=== PATIENT | female | born 1950 | race American Indian/Alaskan Native ===

== ENCOUNTER 2018-02-14 09:19 | Emergency (ER) | payer MEDICARE ==
[2018-02-14 09:34] VITALS: BP 199/100
[2018-02-14] MEDS ORDERED: MOTRIN PO ONE (10:07)
[2018-02-14] MEDS ORDERED: NORCO 7.5/325 PO ONE (10:07)
--- NOTE | 2018-02-14 10:38 | XRay Report ---
LEFT KNEE RADIOGRAPHS INDICATION: Left knee pain, status post fall. COMPARISON: None similar at this institution. FINDINGS: AP, lateral and oblique left knee radiographs demonstrate intact overall articulation. Moderate to severe medial compartment narrowing with slight sclerosis and possible 2 mm medial femoral condyle subarticular cyst. Mild medial and patellofemoral compartment degenerative spurring. Patellar enthesophytes also seen. Atherosclerotic vascular calcifications noted behind the knee. Osteopenia/osteoporosis. Imaged distal femur as also proximal tibia and possibly fibular periosteal thickening suggested. CONCLUSION: 1. No acute left knee radiographic abnormality with degenerative changes noted, most involving the medial compartment, as detailed above. 2. Other findings, including diffuse long bone periosteal reaction/thickening that may be correlated for hypertrophic osteoarthropathy, amongst others, in an appropriate clinical setting. Thank you for the opportunity to participate in this patient's care.
--- NOTE | 2018-02-14 10:46 | Emergency Department Report ---
ED Extremity Problem HPI - General Chief complaint: Fall Stated complaint: FELL ON KNEE INJURY/PAIN Time Seen by Provider: 02/14/18 10:06 Source: patient Mode of arrival: Wheelchair Limitations: No Limitations - History of Present Illness Initial comments: Patient is a 67-year-old [place] female with a past medical history end-stage renal disease who fell yesterday on an escalator. Patient fell directly onto the left knee and states the pain is 10 out of 10 and hurts worse when she bends the knee and when she tries to bear weight. Patient denies any other injury at this time. Patient states pain is throbbing aching pain. Severity scale (0 -10): 10 - Related Data Previous Rx's Medication Instructions Recorded Last Taken Type HYDROcodone/ACETAMINOPHEN 1 each PO Q6HR PRN #15 tablet 02/14/18 Unknown Rx [Hydrocodone-Acetamin 5-325 mg] Allergies Allergy/AdvReac Type Severity Reaction Status Date / Time No Known Allergies Allergy Verified 02/14/18 09:25 ED Review of Systems ROS: Stated complaint: FELL ON KNEE INJURY/PAIN Other details as noted in HPI Comment: All other systems reviewed and negative ED Past Medical Hx - Past Medical History Previous Medical History?: Yes Hx Hypertension: Yes Hx Renal Disease: Yes (Tues, Thurs, Sat) - Surgical History Past Surgical History?: Yes Additional Surgical History: VAs cath to right chest - Social History Smoking Status: Former Smoker Substance Use Type: None - Medications Home Medications: Home Medications Medication Instructions Recorded Confirmed Last Taken Type HYDROcodone/ACETAMINOPHEN 1 each PO Q6HR PRN #15 tablet 02/14/18 Unknown Rx [Hydrocodone-Acetamin 5-325 mg] ED Physical Exam - General Limitations: No Limitations General appearance: alert, in no apparent distress - Head Head exam: Present: atraumatic, normocephalic - Eye Eye exam: Present: normal appearance - ENT ENT exam: Present: mucous membranes moist - Neck Neck exam: Present: normal inspection - Respiratory Respiratory exam: Present: normal lung sounds bilaterally. Absent: respiratory distress - Cardiovascular Cardiovascular Exam: Present: regular rate, normal rhythm. Absent: systolic murmur, diastolic murmur, rubs, gallop - GI/Abdominal GI/Abdominal exam: Present: soft, normal bowel sounds - Extremities Exam Extremities exam: Present: normal inspection, tenderness (patient has full range of motion to the left knee. She does have tenderness over the patella and distal knee anteriorly. There is some soft tissue swelling present.), joint swelling - Back Exam Back exam: Present: normal inspection - Neurological Exam Neurological exam: Present: alert, oriented X3 - Psychiatric Psychiatric exam: Present: normal affect, normal mood - Skin Skin exam: Present: warm, dry, intact, normal color. Absent: rash ED Course Vital Signs 02/14/18 09:25 Temperature 98.4 F Pulse Rate 75 Respiratory 20 Rate Blood Pressure 199/100 O2 Sat by Pulse 100 Oximetry ED Medical Decision Making - Radiology Data Left knee x-ray shows degenerative changes but no acute fracture. There is a moderate amount of soft tissue swelling present Critical care attestation.: If time is entered above; I have spent that time in minutes in the direct care of this critically ill patient, excluding procedure time. ED Disposition Clinical Impression: Knee effusion, left Knee contusion Qualifiers: Encounter type: initial encounter Laterality: left Qualified Code(s): S80.02XA - Contusion of left knee, initial encounter Disposition: TO HOME OR SELFCARE Is pt being admited?: No Does the pt Need Aspirin: No Condition: Stable Instructions: Knee Effusion (ED), Osteoarthritis (ED), Knee Pain (ED), RICE Therapy (ED) Prescriptions: HYDROcodone/ACETAMINOPHEN [Hydrocodone-Acetamin 5-325 mg] 1 each PO Q6HR PRN # 15 tablet PRN Reason: Pain , Severe (7-10) Referrals: AUSTIN ARAUJO MD [Staff Physician] - 3-5 Days Time of Disposition: 10:46
== END 2018-02-14 11:30 | disposition home or self-care (01) ==
LOC: ED 09:19
DX: S80.02XA Contusion of left knee, initial encounter (principal); M25.462 Effusion, left knee; Z87.891 Personal history of nicotine dependence; I12.0 Hypertensive chronic kidney disease with stage 5 chronic kidney disease or end stage renal disease; N18.6 End stage renal disease; Z99.2 Dependence on renal dialysis; W18.39XA Other fall on same level, initial encounter; Y93.89 Activity, other specified; Y92.89 Other specified places as the place of occurrence of the external cause; Y99.8 Other external cause status

== ENCOUNTER 2020-01-20 20:51 | Emergency (ER) | payer MEDICARE ==
[2020-01-20 22:04] LABS: Basophils % (Auto) 0.3 % (0.0-1.8); Eosinophils % (Auto) 0.1 % (0.0-4.3); Hematocrit 32.6 % (30.3-42.9); Hemoglobin 10.9 gm/dl (10.1-14.3); Lymphocytes # (Auto) 0.6 K/mm3 (1.2-5.4); Lymphocytes % (Auto) 6.5 % (13.4-35.0); Mean Corpuscular HGB Conc 33 % (30-34); Mean Corpuscular Volume 96 fl (79-97); Monocytes # (Auto) 0.7 K/mm3 (0.0-0.8); Platelet Count 109 K/mm3 (140-440); Red Blood Count 3.41 M/mm3 (3.65-5.03); Red Cell Distribution Width 15.2 % (13.2-15.2)
[2020-01-20 22:27] LABS: Albumin 4.2 g/dL (3.9-5)
[2020-01-21 06:20] VITALS: BP 130/66
--- NOTE | 2020-01-21 06:24 | Emergency Department Report ---
HPI - General Chief Complaint: Abdominal Pain Time Seen by Provider: 01/21/20 06:10 - HPI HPI: This is a 69-year-old -Congol[place] female who presents to the emergency department with complaint of nausea, vomiting and diarrhea that was going on since about 4 PM yesterday afternoon. However the patient says "as soon as I got here it all stopped." She also has some upper abdominal soreness that she says is secondary to her vomiting. At one point patient says she was vomiting up "dark-colored slime." She has a past medical history of hypertension and end-stage renal disease on hemodialysis on Monday//Monday. Her formal waiter/waitress is Dr. Latoya Delaney. She has not taken anything for symptoms prior to presentation. No recent travel or sick contacts at home. ED Past Medical Hx - Past Medical History Hx Hypertension: Yes Hx Renal Disease: Yes (, , Mon) - Surgical History Additional Surgical History: VAs cath to right chest - Social History Smoking Status: Former Smoker Substance Use Type: None - Medications Home Medications: Home Medications Medication Instructions Recorded Confirmed Last Taken Type HYDROcodone/ACETAMINOPHEN 1 each PO Q6HR PRN #15 tablet 02/14/18 Unknown Rx [Hydrocodone-Acetamin 5-325 mg] Ondansetron [Zofran Odt] 4 mg PO Q8HR PRN #15 tab.rapdis 01/21/20 Unknown Rx ED Review of Systems ROS: Stated complaint: N/V, FEVER Other details as noted in HPI Comment: All other systems reviewed and negative Constitutional: denies: chills, fever Eyes: denies: eye pain, vision change ENT: denies: ear pain, throat pain Respiratory: denies: cough, shortness of breath Cardiovascular: denies: chest pain, palpitations Gastrointestinal: abdominal pain, nausea, vomiting, diarrhea Genitourinary: denies: dysuria, discharge Musculoskeletal: denies: back pain, arthralgia Skin: denies: rash, lesions Neurological: denies: headache, weakness Physical Exam - Physical Exam Vital Signs: Vital Signs 01/20/20 01/21/20 01/21/20 21:16 05:26 05:27 Temperature 99.0 F 98.0 F Pulse Rate 70 71 Respiratory 18 17 17 Rate Blood Pressure 159/78 Blood Pressure 146/69 [Right] O2 Sat by Pulse 98 99 Oximetry 01/21/20 01/21/20 05:50 06:18 Temperature Pulse Rate 64 Respiratory 17 17 Rate Blood Pressure Blood Pressure 130/66 [Right] O2 Sat by Pulse 98 Oximetry Physical Exam: GENERAL: The patient is well-developed well-nourished. HENT: Normocephalic. Atraumatic. Patient has moist mucous membranes. EYES: Extraocular motions are intact. NECK: Supple. Trachea is midline. CHEST/LUNGS: Clear to auscultation. There is no respiratory distress noted. HEART/CARDIOVASCULAR: Regular. There is no tachycardia. There is no murmur. ABDOMEN: Abdomen is soft. Mild epigastric tenderness palpation. No guarding. Patient has normal bowel sounds. There is no abdominal distention. SKIN: Skin is warm and dry. NEURO: The patient is awake, alert, and oriented. The patient is cooperative. Normal speech. MUSCULOSKELETAL: There is no tenderness or deformity. There is no limitation range of motion. ED Course Vital Signs 01/20/20 01/21/20 01/21/20 21:16 05:26 05:27 Temperature 99.0 F 98.0 F Pulse Rate 70 71 Respiratory 18 17 17 Rate Blood Pressure 159/78 Blood Pressure 146/69 [Right] O2 Sat by Pulse 98 99 Oximetry 01/21/20 01/21/20 05:50 06:18 Temperature Pulse Rate 64 Respiratory 17 17 Rate Blood Pressure Blood Pressure 130/66 [Right] O2 Sat by Pulse 98 Oximetry ED Medical Decision Making - Lab Data Result diagrams: 01/20/20 21:44 01/20/20 21:44 - Radiology Data Radiology results: report reviewed ULTRASOUND ABDOMEN, LIMITED (RIGHT UPPER QUADRANT) INDICATION: upper abd pain, elevated LFT/Lipase. COMPARISON: None available. FINDINGS: Pancreas: Visualized portion shows no significant abnormality. Liver: Mild increased echogenicity. Gallbladder: Gallstones. No wall thickening. Bile ducts: Normal. Common Bile Duct measures 4.5 mm. Free fluid: None. Additional Findings: Right kidney small measuring 8.4 cm. Increased echogenicity. 2 cysts. IMPRESSION: 1. Gallstones without biliary dilatation. 2. Fatty liver. 3. Small, echogenic right kidney containing small cysts. There appears to have been an addendum added stating that there were no obvious gallstones found but instead there is a prominent fold within the gallbladder. - Medical Decision Making This patient presented with a complaint of nausea, vomiting and diarrhea that started yesterday but spontaneously stopped upon presentation to the emergency department. On examination she has some mild epigastric tenderness to palpation but otherwise the abdomen is soft, nondistended and nontoxic in appearance. Patient's labs shows some elevated LFTs and elevation of the lipase. For these reasons the patient had an ultrasound done of the upper abdomen that resulted as cholelithiasis without cholecystitis. There was later an addendum saying that gallstones were not obvious but instead it may have been a "prominent fold" in the gallbladder. This does not change the patient's management as she was already referred to gastroenterology secondary to the transaminitis and her mild abdominal pain. The patient's labs also showed renal insufficiency consistent with her end-stage renal disease. She was due for dialysis today but does not appear to need emergent dialysis. She has been instructed to contact her formal waiter/waitress to continue with her dialysis schedule. She will return to the emergency department with any worsening of her symptoms or with any acute distress. Critical Care Time: No Critical care attestation.: If time is entered above; I have spent that time in minutes in the direct care of this critically ill patient, excluding procedure time. ED Disposition Clinical Impression: ESRD on hemodialysis Nausea & vomiting Qualifiers: Vomiting type: unspecified Vomiting Intractability: unspecified Qualified Code(s): R11.2 - Nausea with vomiting, unspecified Cholelithiasis Qualifiers: Cholelithiasis location: gallbladder Cholecystitis presence: without cholecystitis Biliary obstruction: without biliary obstruction Qualified Code(s): K80.20 - Calculus of gallbladder without cholecystitis without obstruction Disposition: - TO HOME OR SELFCARE Is pt being admited?: No Condition: Stable Instructions: Biliary Colic (ED), Cholelithiasis (ED), Acute Nausea and Vomiting (ED), Abdominal Pain (ED), End-Stage Kidney Disease (ED) Additional Instructions: Please continue with your dialysis regiment. Please follow-up with your primary care physician and formal waiter/waitress. I am giving you a referral for a local steward/stewardess deck, Dr. Dunlap, part of [facility], in order to follow-up regarding your elevated liver and pancreatic enzymes and your gallstones. Return to the emergency department with any worsening of your symptoms or with any acute distress. Prescriptions: Ondansetron [Zofran Odt] 4 mg PO Q8HR PRN #15 tab.rapdis PRN Reason: Nausea Referrals: PCP, Your [Other] - 2-3 Days Tank Assembler, Your [Other] - 2-3 Days CAROL DUNLAP MD [Staff Physician] - 3-5 Days Time of Disposition: 07:45
--- NOTE | 2020-01-21 07:06 | XRay Report ---
ABDOMEN 1 VIEW(S) INDICATION / CLINICAL INFORMATION: Abd pain. COMPARISON: None available. FINDINGS: TUBES / LINES: None. BOWEL GAS PATTERN: No significant abnormality. ADDITIONAL FINDINGS: Cardiomegaly. Signer Name: Hero Piper MD Signed: 01/21/2020 7:01 AM Workstation Name: [id number]
--- NOTE | 2020-01-21 07:29 | Ultrasound Report ---
ULTRASOUND ABDOMEN, LIMITED (RIGHT UPPER QUADRANT) INDICATION: upper abd pain, elevated LFT/Lipase. COMPARISON: None available. FINDINGS: Pancreas: Visualized portion shows no significant abnormality. Liver: Mild increased echogenicity. Gallbladder: Gallstones. No wall thickening. Bile ducts: Normal. Common Bile Duct measures 4.5 mm. Free fluid: None. Additional Findings: Right kidney small measuring 8.4 cm. Increased echogenicity. 2 cysts. IMPRESSION: 1. Gallstones without biliary dilatation. 2. Fatty liver. 3. Small, echogenic right kidney containing small cysts. Signer Name: Hero Piper MD Signed: 01/21/2020 7:25 AM Workstation Name: [id number]
== END 2020-01-21 08:28 | disposition home or self-care (01) ==
LOC: ED 20:51
DX: K80.20 Calculus of gallbladder without cholecystitis without obstruction (principal); R11.2 Nausea with vomiting, unspecified; I12.0 Hypertensive chronic kidney disease with stage 5 chronic kidney disease or end stage renal disease; N18.6 End stage renal disease; Z99.2 Dependence on renal dialysis; Z98.890 Other specified postprocedural states; Z87.891 Personal history of nicotine dependence; Z79.899 Other long term (current) drug therapy
CPT/HCPCS: 36415; 74019; 76705; 80053; 83690; 85025

== ENCOUNTER 2020-10-05 08:48 | Emergency (ER) | payer MEDICARE ==
[2020-10-05 09:08] VITALS: BP 165/76
[2020-10-05] MEDS ORDERED: HYDROcodone/ACETAMINOPHEN 10-325MG TAB PO ONE (10:29)
--- NOTE | 2020-10-05 10:30 | Emergency Department Report ---
ED Back Pain/Injury HPI - General Chief Complaint: Back Pain/Injury Stated Complaint: BACK PAIN Time Seen by Provider: 10/05/20 10:28 Source: patient Limitations: Other - History of Present Illness Initial Comments: 70-year-old female with a past medical history of end-stage renal disease currently on hemodialysis Tuesdays, and Saturdays, diabetes, hyperlipidemia, hypertension and tobacco use presents to the ER today with complaints of right low back pain. Patient states that the pain started about 4 days ago. She denies any particular injury or strenuous activity. She states that she noticed the pain when she was getting ready for dialysis. She states that has been a constant pain that radiates into her right upper abdomen. She states that the pain seems to be worse with certain movements and when she stands and tries to walk. She denies any radiation of the pain down into the leg. She states that she does not produce any urine secondary to end-stage renal disease. She denies any bowel incontinence, saddle anesthesia or lower extremity numbness, tingling or weakness. She denies any nausea, vomiting or diarrhea. She denies any abdominal pain, chest pain or shortness of breath. She denies any fever or chills. She denies any known history of aortic disease. She denies any history of chronic back pain. MD Complaint: back pain -: Gradual, days(s) (4) - Related Data Previous Rx's Medication Instructions Recorded Last Taken Type Ondansetron [Zofran Odt] 4 mg PO Q8HR PRN #15 tab.rapdis 01/21/20 Unknown Rx Ciprofloxacin HCl 500 mg PO Q12H #14 tablet 10/05/20 Unknown Rx HYDROcodone/APAP 7.5-325 [Holman 1 each PO Q6HR PRN #12 tablet 10/05/20 Unknown Rx 7.5/325] Metaxalone [Skelaxin] 800 mg PO TID #30 tablet 10/05/20 Unknown Rx metroNIDAZOLE [Flagyl] 500 mg PO Q12HR #14 tab 10/05/20 Unknown Rx Allergies Allergy/AdvReac Type Severity Reaction Status Date / Time No Known Allergies Allergy Verified 02/14/18 09:25 ED Review of Systems ROS: Stated complaint: BACK PAIN Other details as noted in HPI Comment: All other systems reviewed and negative Constitutional: denies: chills, fever Eyes: denies: eye pain, eye discharge, vision change ENT: denies: ear pain, throat pain, dental pain, hearing loss, epistaxis, congestion Respiratory: denies: cough, orthopnea, shortness of breath, SOB with exertion, SOB at rest, stridor, wheezing Cardiovascular: denies: chest pain, palpitations, dyspnea on exertion, orthopnea, edema, syncope, paroxysmal nocturnal dyspnea Endocrine: no symptoms reported Gastrointestinal: denies: abdominal pain, nausea, diarrhea, constipation, hematemesis, melena, hematochezia Genitourinary: denies: urgency, dysuria, frequency, hematuria, discharge, abnormal menses, dyspareunia Musculoskeletal: back pain. denies: joint swelling, arthralgia, myalgia Skin: denies: rash, lesions, change in color, change in hair/nails, pruritus Neurological: denies: headache, weakness, numbness, paresthesias, confusion, abnormal gait, vertigo Psychiatric: denies: anxiety, depression, auditory hallucinations, visual hallucinations, homicidal thoughts, suicidal thoughts Hematological/Lymphatic: denies: easy bleeding, easy bruising, swollen glands ED Past Medical Hx - Past Medical History Previous Medical History?: Yes Hx Hypertension: Yes Hx Renal Disease: Yes (, Th, Sat) - Surgical History Past Surgical History?: Yes Additional Surgical History: VAs cath to right chest - Social History Smoking Status: Former Smoker Substance Use Type: None - Medications Home Medications: Home Medications Medication Instructions Recorded Confirmed Last Taken Type Ondansetron [Zofran Odt] 4 mg PO Q8HR PRN #15 tab.rapdis 01/21/20 Unknown Rx Ciprofloxacin HCl 500 mg PO Q12H #14 tablet 10/05/20 Unknown Rx HYDROcodone/APAP 7.5-325 [Holman 1 each PO Q6HR PRN #12 tablet 10/05/20 Unknown Rx 7.5/325] Metaxalone [Skelaxin] 800 mg PO TID #30 tablet 10/05/20 Unknown Rx metroNIDAZOLE [Flagyl] 500 mg PO Q12HR #14 tab 10/05/20 Unknown Rx ED Physical Exam - General Limitations: Other General appearance: alert, in distress (Patient appears uncomfortable secondary to the pain in her back.) - Head Head exam: Present: atraumatic, normocephalic, normal inspection - Eye Eye exam: Present: normal appearance, PERRL, EOMI Pupils: Present: normal accommodation - ENT ENT exam: Present: normal exam, mucous membranes moist, TM's normal bilaterally - Neck Neck exam: Present: normal inspection - Respiratory Respiratory exam: Present: normal lung sounds bilaterally. Absent: respiratory distress, wheezes, rales, rhonchi - Cardiovascular Cardiovascular Exam: Present: regular rate, normal rhythm, normal heart sounds - GI/Abdominal GI/Abdominal exam: Present: soft, tenderness (Mild tenderness right upper quadrant without guarding or rebound.). Absent: distended, guarding, rebound, hyperactive bowel sounds, hypoactive bowel sounds, organomegaly - Back Exam Back exam: Present: normal inspection, paraspinal tenderness (right lower lumbar area), other (decrease in flex and ext of spine due to pain ) - Neurological Exam Neurological exam: Present: alert, oriented X3, CN II-XII intact, reflexes normal, other (pt in wheelchair, she is able to stand up from wheelchair, but when she tries to ambulate it causes pain in lower back, so gait not fully tested due to pain). Absent: motor sensory deficit (Normal sensation and strength along bilateral lower extremity and equal.) - Expanded Neurological Exam Expanded Sensory exam: Lower Extremity Light Touch: Normal, Lower Extremity Temperature: Normal Motor strength exam: RUE: 5, LUE: 5, RLE: 5, LLE: 5 Best Eye Response ([place]): (4) open spontaneously Best Motor Response ([place]): (6) obeys commands Best Verbal Response ([place]): (5) oriented Sonny Total: 15 - Psychiatric Psychiatric exam: Present: normal affect, normal mood - Skin Skin exam: Present: intact ED Course Vital Signs 10/05/20 09:06 Temperature 98.7 F Pulse Rate 69 Respiratory 18 Rate Blood Pressure 165/76 [Right] O2 Sat by Pulse 99 Oximetry ED Medical Decision Making - Lab Data Result diagrams: 10/05/20 10:44 10/05/20 10:44 - Radiology Data Radiology results: report reviewed Patient: RODNEY LANDAVERDE MR#: [id number] : 1950 Acct:[id number] Age/Sex: 70 / F ADM Date: 10/05/20 Loc: ED Attending Dr: Ordering Physician: RAJINDER MOLINA Date of Service: 10/05/20 Procedure(s): CT abdomen pelvis wo con Accession Number(s): [id number] cc: RAJINDER MOLINA CT ABDOMEN AND PELVIS WITHOUT CONTRAST HISTORY: Right back pain/right upper abd pain. COMPARISON: None. TECHNIQUE: CT images of the abdomen and pelvis were obtained without administration of intravenous contrast. All CT scans at this location are performed using CT dose reduction for ALARA by means of automated exposure control. FINDINGS: Lungs/bones: Mild left lower lung atelectasis. Abdomen/pelvis: Within limits of a noncontrast exam through glands, pancreas, gallbladder and spleen appear normal. The liver appears enlarged. Bilateral kidneys appear atrophic small in size. There is a left renal hypodensity density cyst. No ureteral stones or renal stones are seen. There is mild edema/inflammation just deep to the skin surface in left lower abdomen, nonspecific. No drainable collection is seen. There is thickening of the cecum and ascending colon suggested. The appendix is not definitely seen. Degenerative changes seen throughout spine. IMPRESSION: 1. There is thickening of the cecum and ascending colon which could represent colitis, inflammatory, infectious, nonspecific. The appendix is not well seen and clinical correlation is recommended. No free fluid is seen. 2. Hepatomegaly with hepatic steatosis. 3. Left renal cyst. Mild inflammation surrounding the kidneys without renal atrophy however no renal or ureteral stones. 4. Mild inflammation in the subcutaneous fat just deep to skin surface in left lower abdomen, 9 6. Clinical correlation. 5. Left lower lung atelectasis. Signer Name: Sameer Gonzalez MD Signed: 10/05/2020 11:21 AM Workstation Name: [id number] Transcribed By: DOMINGO Dictated By: VANDANA GONZALEZ MD Electronically Authenticated By: VANDANA GONZALEZ MD Signed Date/Time: 10/05/20 1121 DD/ 1117 TD/TT: - Medical Decision Making 1229: CT/Labs reviewed - Nothing acute on labs, UA not done because patient does not make urine; CT abdomen and pelvis with IV contrast shows that there is thickening of the cecum and ascending colon which could represent colitis, inflammatory, infectious, nonspecific. The appendix is not well seen and clinical correlation is recommended. No free fluid is seen. Hepatomegaly with hepatic steatosis. Left renal cyst. Mild inflammation surrounding the kidneys without renal atrophy however no renal or ureteral stones. Mild inflammation in the subcutaneous fat just deep to skin surface in left lower abdomen, 9 6. Clinical correlation. Left lower lung atelectasis. Patient reports improvement of her pain after meds. She is not toxic or ill appearing and currently in no distress. She is neurologically intact. Her VS are stable. Patient will be treated with Cipro and Flagyl (per discussion with Dr Love Robins) for colitis as well as pain meds and muscle relaxers as her back pain could also be related to DJD in spine seen on CT. discussed results with patient, discussed suspected diagnosis with patient; Recommend that she follows up with her primary care doctor in the next couple days as well as referral to a alignment specialist for possible outpatient MRI of her spine. Patient expresses understanding of instructions and agree with plan. Patient stable at time of discharge. Critical care attestation.: If time is entered above; I have spent that time in minutes in the direct care of this critically ill patient, excluding procedure time. ED Disposition Clinical Impression: Lower back pain, Colitis, Degenerative joint disease (DJD) of lumbar spine Disposition: DC-01 TO HOME OR SELFCARE Is pt being admited?: No Does the pt Need Aspirin: No Condition: Stable Instructions: Acute Back Pain, Adult, Degenerative Disk Disease, Colitis Additional Instructions: Take the Cipro and the Flagyl as prescribed. The hydrocodone and the Skelaxin as prescribed for the back pain. Follow-up with your primary care doctor and the urologist this week. Return to the ER if your symptoms worsens or changes in any way. Prescriptions: Ciprofloxacin HCl 500 mg PO Q12H #14 tablet metroNIDAZOLE [Flagyl] 500 mg PO Q12HR #14 tab HYDROcodone/APAP 7.5-325 [Holman 7.5/325] 1 each PO Q6HR PRN #12 tablet PRN Reason: Pain Metaxalone [Skelaxin] 800 mg PO TID #30 tablet Referrals: PRIMARY CARE, [Primary Care Provider] - 3-5 Days Time of Disposition: 12:32
[2020-10-05 11:06] LABS: Basophils % (Auto) 0.3 % (0.0-1.8); Eosinophils # (Auto) 0.1 K/mm3 (0.0-0.4); Eosinophils % (Auto) 0.7 % (0.0-4.3); Hematocrit 34.9 % (30.3-42.9); Hemoglobin 11.4 gm/dl (10.1-14.3); Lymphocytes # (Auto) 0.9 K/mm3 (1.2-5.4); Lymphocytes % (Auto) 13.1 % (13.4-35.0); Mean Corpuscular HGB Conc 33 % (30-34); Mean Corpuscular Volume 96 fl (79-97); Monocytes # (Auto) 0.8 K/mm3 (0.0-0.8); Monocytes % (Auto) 11.2 % (0.0-7.3); Platelet Count 135 K/mm3 (140-440); Red Blood Count 3.64 M/mm3 (3.65-5.03); Red Cell Distribution Width 14.4 % (13.2-15.2)
[2020-10-05 11:22] LABS: Albumin 3.4 g/dL (3.9-5); Calcium 8.1 mg/dL (8.4-10.2)
--- NOTE | 2020-10-05 11:25 | Cat Scan Report ---
CT ABDOMEN AND PELVIS WITHOUT CONTRAST HISTORY: Right back pain/right upper abd pain. COMPARISON: None. TECHNIQUE: CT images of the abdomen and pelvis were obtained without administration of intravenous co ntrast. All CT scans at this location are performed using CT dose reduction for ALARA by means of au tomated exposure control. FINDINGS: Lungs/bones: Mild left lower lung atelectasis. Abdomen/pelvis: Within limits of a noncontrast exam through glands, pancreas, gallbladder and spleen appear normal. The liver appears enlarged. Bilateral kidneys appear atrophic small in size. There is a left renal hypodensity density cyst. No ureteral stones or renal stones are seen. There is mild edema/inflammation just deep to the skin surface in left lower abdomen, nonspecific. No drainable collection is seen. There is thickening of the cecum and ascending colon suggested. The ap pendix is not definitely seen. Degenerative changes seen throughout spine. IMPRESSION: 1. There is thickening of the cecum and ascending colon which could represent colitis, inflammatory, infectious, nonspecific. The appendix is not well seen and clinical correlation is recommended. No fr ee fluid is seen. 2. Hepatomegaly with hepatic steatosis. 3. Left renal cyst. Mild inflammation surrounding the kidneys without renal atrophy however no renal or ureteral stones. 4. Mild inflammation in the subcutaneous fat just deep to skin surface in left lower abdomen, 9 6. Cl inical correlation. 5. Left lower lung atelectasis. Signer Name: Sameer Gonzalez MD Signed: 10/05/2020 11:21 AM Workstation Name: [id number]
== END 2020-10-05 12:40 | disposition home or self-care (01) ==
LOC: ED 08:48
DX: M47.816 Spondylosis without myelopathy or radiculopathy, lumbar region (principal); K52.9 Noninfective gastroenteritis and colitis, unspecified; E78.5 Hyperlipidemia, unspecified; I12.0 Hypertensive chronic kidney disease with stage 5 chronic kidney disease or end stage renal disease; N18.6 End stage renal disease; E11.22 Type 2 diabetes mellitus with diabetic chronic kidney disease; Z87.891 Personal history of nicotine dependence; Z79.899 Other long term (current) drug therapy; Z98.890 Other specified postprocedural states
CPT/HCPCS: 36415; 74176; 80053; 85025

== ENCOUNTER 2020-10-29 04:59 | Emergency (ER) | payer MEDICARE ==
[2020-10-29] MEDS ORDERED: traMADol 50 MG TAB PO ONE (06:34)
--- NOTE | 2020-10-29 06:37 | Emergency Department Report ---
ED Back Pain/Injury HPI - General Chief Complaint: Back Pain/Injury Stated Complaint: SEVERE BACK PAIN Time Seen by Provider: 10/29/20 06:17 Source: patient Limitations: No Limitations - History of Present Illness Initial Comments: 70-year-old female, history of ESRD, presents to ED with back pain. Patient states pain began approximately 1 month ago. She was seen in the ER at that time given prescription for pain medications. Patient also reports she had a CT scan done. Patient states her pain improved after taking the medications. States the pain came back yesterday. She reports she has been taking Tylenol, which is not relieving the pain. Patient states pain is located across the lower back on both sides. She denies any pain radiating into the legs. She denies any numbness or tingling, weakness in the legs. Patient is anuric secondary to her ESRD. She denies any bowel retention or incontinence. Patient denies fever. She denies any injury, fall, or heavy lifting. MD Complaint: back pain -: month(s) (1) Similar Symptoms Previously: Yes Radiation: none Severity: severe Quality: aching Consistency: intermittent Improves With: immobilization Worsens With: movement Context: unknown Associated Symptoms: denies: weakness, numbness, incontinence, fever/chills, constipation, abdominal pain, nausea/vomiting Treatments Prior to Arrival: acetaminophen - Related Data Previous Rx's Medication Instructions Recorded Last Taken Type Ondansetron [Zofran Odt] 4 mg PO Q8HR PRN #15 tab.rapdis 01/21/20 Unknown Rx Ciprofloxacin HCl 500 mg PO Q12H #14 tablet 10/05/20 Unknown Rx HYDROcodone/APAP 7.5-325 [[place] 1 each PO Q6HR PRN #12 tablet 10/05/20 Unknown Rx 7.5/325] Metaxalone [Skelaxin] 800 mg PO TID #30 tablet 10/05/20 Unknown Rx metroNIDAZOLE [Flagyl] 500 mg PO Q12HR #14 tab 10/05/20 Unknown Rx methOCARBAMOL [Robaxin TAB] 500 mg PO Q8HR PRN #20 tablet 10/29/20 Unknown Rx traMADoL [Ultram] 50 mg PO Q6HR PRN #7 tablet 10/29/20 Unknown Rx Allergies Allergy/AdvReac Type Severity Reaction Status Date / Time No Known Allergies Allergy Verified 10/29/20 05:18 ED Review of Systems ROS: Stated complaint: SEVERE BACK PAIN Other details as noted in HPI Comment: All other systems reviewed and negative Constitutional: denies: fever Gastrointestinal: denies: nausea Musculoskeletal: back pain Neurological: denies: weakness, numbness ED Past Medical Hx - Past Medical History Previous Medical History?: Yes Hx Hypertension: Yes Hx Renal Disease: Yes (Tues, Thurs, Sat) - Surgical History Past Surgical History?: No Additional Surgical History: VAs cath to right chest - Social History Smoking Status: Unknown if ever smoked Substance Use Type: None - Medications Home Medications: Home Medications Medication Instructions Recorded Confirmed Last Taken Type Ondansetron [Zofran Odt] 4 mg PO Q8HR PRN #15 tab.rapdis 01/21/20 Unknown Rx Ciprofloxacin HCl 500 mg PO Q12H #14 tablet 10/05/20 Unknown Rx HYDROcodone/APAP 7.5-325 [[place] 1 each PO Q6HR PRN #12 tablet 10/05/20 Unknown Rx 7.5/325] Metaxalone [Skelaxin] 800 mg PO TID #30 tablet 10/05/20 Unknown Rx metroNIDAZOLE [Flagyl] 500 mg PO Q12HR #14 tab 10/05/20 Unknown Rx methOCARBAMOL [Robaxin TAB] 500 mg PO Q8HR PRN #20 tablet 10/29/20 Unknown Rx traMADoL [Ultram] 50 mg PO Q6HR PRN #7 tablet 10/29/20 Unknown Rx ED Physical Exam - General Limitations: No Limitations General appearance: alert, in no apparent distress - Head Head exam: Present: atraumatic, normocephalic - Eye Eye exam: Present: normal appearance, EOMI - ENT ENT exam: Present: mucous membranes moist - Neck Neck exam: Present: normal inspection - Respiratory Respiratory exam: Present: normal lung sounds bilaterally. Absent: respiratory distress - Cardiovascular Cardiovascular Exam: Present: regular rate, normal rhythm - GI/Abdominal GI/Abdominal exam: Present: soft. Absent: distended, tenderness - Extremities Exam Extremities exam: Present: normal inspection - Back Exam Back exam: Present: paraspinal tenderness (in the L5, S1 area) - Neurological Exam Neurological exam: Present: alert, oriented X3. Absent: motor sensory deficit - Psychiatric Psychiatric exam: Present: normal affect, normal mood - Skin Skin exam: Present: warm, dry, intact, normal color ED Course Vital Signs 10/29/20 10/29/20 10/29/20 05:42 05:50 06:01 Temperature 98.9 F Pulse Rate 82 Respiratory 16 Rate Blood Pressure 156/79 Blood Pressure 144/66 [Right] O2 Sat by Pulse 100 98 99 Oximetry 10/29/20 10/29/20 06:15 08:21 Temperature Pulse Rate 62 Respiratory Rate Blood Pressure 155/77 Blood Pressure 164/84 [Right] O2 Sat by Pulse 98 99 Oximetry - Reevaluation(s) Reevaluation #1: 10/29/20 08:21 Pt ambulated by RN. No difficulties. ED Medical Decision Making - Medical Decision Making 70-year-old female presents to ED with acute on chronic back pain. Patient reports onset [address] scan at that time showed diffuse degenerative changes throughout the spine. Patient has not followed up since her last ER 1 month ago visit. Patient reports the same pain in same area today. She is afebrile. No neuro deficits on exam. No report of urinary or bowel incontinence or retention. Patient given Ultram and Robaxin here in the ED. She is currently feeling much better. Able to ambulate. Will discharge at this time. Outpatient follow-up advised with chief specialist leed, return precautions given. - Differential Diagnosis Degenerative disc disease Critical care attestation.: If time is entered above; I have spent that time in minutes in the direct care of this critically ill patient, excluding procedure time. ED Disposition Clinical Impression: Acute exacerbation of chronic low back pain Disposition: - TO HOME OR SELFCARE Is pt being admited?: No Condition: Stable Instructions: Chronic Back Pain, [id number] Prescriptions: methOCARBAMOL [Robaxin TAB] 500 mg PO Q8HR PRN #20 tablet PRN Reason: Muscle Spasm traMADoL [Ultram] 50 mg PO Q6HR PRN #7 tablet PRN Reason: Pain Referrals: PRIMARY CARE, [Primary Care Provider] - 3-5 Days FRANDY RITTER II, MD [Staff Physician] - 3-5 Days Time of Disposition: :22
[2020-10-29 08:22] VITALS: BP 164/84
== END 2020-10-29 08:45 | disposition home or self-care (01) ==
LOC: ED 04:59
DX: M54.5 Low back pain (principal); I10 Essential (primary) hypertension; Z79.899 Other long term (current) drug therapy; Z98.890 Other specified postprocedural states
CPT/HCPCS: 99282

== ENCOUNTER 2021-10-25 13:01 | Observation (INO) | payer OTHER ==
[2021-10-25 14:45] LABS: Basophils % (Auto) 0.7 % (0.0-1.8); Eosinophils # (Auto) 0.3 K/mm3 (0.0-0.4); Eosinophils % (Auto) 4.7 % (0.0-4.3); Hemoglobin 10.5 gm/dl (10.1-14.3); Lymphocytes # (Auto) 1.3 K/mm3 (1.2-5.4); Lymphocytes % (Auto) 18.3 % (13.4-35.0); Mean Corpuscular HGB Conc 31 % (30-34); Mean Corpuscular Volume 92 fl (79-97); Monocytes # (Auto) 0.7 K/mm3 (0.0-0.8); Monocytes % (Auto) 9.4 % (0.0-7.3); Platelet Count 147 K/mm3 (140-440); Red Blood Count 3.71 M/mm3 (3.65-5.03); Red Cell Distribution Width 17.2 % (13.2-15.2)
[2021-10-25 15:07] LABS: Alanine Aminotransferase 14 units/L (7-56); Albumin 3.7 g/dL (3.9-5); Blood Urea Nitrogen 66 mg/dL (7-17); Calcium 8.2 mg/dL (8.4-10.2); Hemolysis Index 0
[2021-10-25 15:10] LABS: BUN/Creatinine Ratio 5
--- NOTE | 2021-10-26 07:16 | Emergency Department Report ---
ED General Adult HPI - General Chief complaint: Medical Clearance Stated complaint: "I'm here for dialysis" PUI?: No Time Seen by Provider: 10/26/21 06:29 Source: patient Mode of arrival: Ambulatory Limitations: No Limitations - History of Present Illness Initial comments: 71-year-old female with history of end-stage renal disease on dialysis Monday, hypertension, congestive heart failure, DMII, HTN, sent from [facility] for dialysis. Patient reports that she was recently entered into this facility for rehabilitation secondary to her fracture in her right lower extremity. The patient states that since being there "they told me they would put me on dialysis and set me up but it never happened." She last underwent hemodialysis exactly 1 week ago, on Tuesday, October 19, 2021. Patient denies any chest pain shortness of breath difficulty breathing palpitations lightheadedness or dizziness. She complains of "my mild tightness in my abdomen." Pain 0 out of 10. Remainder review of systems negative. - Related Data Previous Rx's Medication Instructions Recorded Last Taken Type Ondansetron [Zofran ODT TAB] 4 mg PO Q8HR PRN #15 tab.rapdis 01/21/20 09/14/21 Rx Ciprofloxacin HCl 500 mg PO Q12H #14 tablet 10/05/20 09/14/21 Rx metroNIDAZOLE [Flagyl TAB] 500 mg PO Q12HR #14 tab 10/05/20 09/14/21 Rx methOCARBAMOL [Robaxin TAB] 500 mg PO Q8HR PRN #20 tablet 10/29/20 09/14/21 Rx traMADoL [Ultram 50 MG tab] 50 mg PO Q6HR PRN #7 tablet 10/29/20 09/13/21 Rx Aspirin EC [Halfprin EC] 81 mg PO QDAY #30 tablet 09/17/21 Unknown Rx HYDROcodone/APAP 7.5-325 [[place] 1 each PO Q6HR PRN #12 tablet 09/17/21 Unknown Rx 7.5-325 mg TAB] Metaxalone [Skelaxin] 800 mg PO TID #30 tablet 09/17/21 Unknown Rx NIFEdipine XL [Procardia Xl] 60 mg PO QDAY #30 tablet 09/17/21 Unknown Rx Valsartan [Diovan] 160 mg PO BID #60 tablet 09/17/21 Unknown Rx carvediloL [Coreg] 6.25 mg PO BID #60 tablet 09/17/21 Unknown Rx Allergies Allergy/AdvReac Type Severity Reaction Status Date / Time No Known Allergies Allergy Verified 09/14/21 15:42 ED Review of Systems ROS: Stated complaint: DIZZY Other details as noted in HPI Comment: All other systems reviewed and negative Constitutional: denies: chills, diaphoresis, fever, malaise, weakness Eyes: denies: eye pain, eye discharge ENT: denies: ear pain, throat pain, dental pain, hearing loss, epistaxis Respiratory: no symptoms reported Cardiovascular: denies: chest pain, palpitations, dyspnea on exertion, orthopnea, edema, syncope, paroxysmal nocturnal dyspnea Endocrine: denies: see HPI, excessive sweating, flushing, intolerance to cold, intolerance to heat, increased hunger, increased thirst, increased urine, unexplained weight gain, unexplained weight loss Genitourinary: denies: urgency, dysuria, frequency, hematuria, discharge, abnormal menses, dyspareunia Musculoskeletal: denies: back pain, joint swelling, arthralgia, myalgia Skin: denies: rash, lesions, change in color, change in hair/nails, pruritus Neurological: denies: headache, weakness, numbness, paresthesias, confusion, abnormal gait, vertigo, other Psychiatric: denies: anxiety, depression, auditory hallucinations, visual hallucinations, homicidal thoughts, suicidal thoughts Hematological/Lymphatic: denies: easy bleeding, easy bruising, swollen glands ED Past Medical Hx - Past Medical History Hx Hypertension: Yes Hx Diabetes: Yes Hx Renal Disease: Yes (Tues, Th, Sat) Hx COPD: Yes - Surgical History Additional Surgical History: VAs cath to right chest, right leg sx for fx - Social History Smoking Status: Never Smoker - Medications Home Medications: Home Medications Medication Instructions Recorded Confirmed Last Taken Type Ondansetron [Zofran ODT TAB] 4 mg PO Q8HR PRN #15 tab.rapdis 01/21/20 09/15/21 09/14/21 Rx Ciprofloxacin HCl 500 mg PO Q12H #14 tablet 10/05/20 09/15/21 09/14/21 Rx metroNIDAZOLE [Flagyl TAB] 500 mg PO Q12HR #14 tab 10/05/20 09/15/21 09/14/21 Rx methOCARBAMOL [Robaxin TAB] 500 mg PO Q8HR PRN #20 tablet 10/29/20 09/15/21 09/14/21 Rx traMADoL [Ultram 50 MG tab] 50 mg PO Q6HR PRN #7 tablet 10/29/20 09/15/21 09/13/21 Rx Aspirin EC [Halfprin EC] 81 mg PO QDAY #30 tablet 09/17/21 Unknown Rx HYDROcodone/APAP 7.5-325 [[place] 1 each PO Q6HR PRN #12 tablet 09/17/21 Unknown Rx 7.5-325 mg TAB] Metaxalone [Skelaxin] 800 mg PO TID #30 tablet 09/17/21 Unknown Rx NIFEdipine XL [Procardia Xl] 60 mg PO QDAY #30 tablet 09/17/21 Unknown Rx Valsartan [Diovan] 160 mg PO BID #60 tablet 09/17/21 Unknown Rx carvediloL [Coreg] 6.25 mg PO BID #60 tablet 09/17/21 Unknown Rx ED Physical Exam - General Limitations: No Limitations General appearance: alert (pt asleep, easily arousable, well appearing; no drooling no stridor no respiratory distress, breathing unlabored,), in no apparent distress - Head Head exam: Present: atraumatic, normocephalic, normal inspection - Eye Eye exam: Present: normal appearance, PERRL, EOMI Pupils: Present: normal accommodation - ENT ENT exam: Present: normal exam, normal orophraynx, mucous membranes moist, normal external ear exam - Neck Neck exam: Present: normal inspection, full ROM. Absent: tenderness, meningismus, lymphadenopathy, thyromegaly - Respiratory Respiratory exam: Present: normal lung sounds bilaterally. Absent: respiratory distress, wheezes, rales, rhonchi, stridor, chest wall tenderness, accessory muscle use, decreased breath sounds, prolonged expiratory - Cardiovascular Cardiovascular Exam: Present: regular rate, normal rhythm, normal heart sounds. Absent: bradycardia, tachycardia, irregular rhythm, systolic murmur, diastolic murmur, rubs, gallop, clicks, JVD, S3, S4, other - GI/Abdominal GI/Abdominal exam: Present: soft, normal bowel sounds. Absent: distended, tenderness, guarding, rebound, rigid, diminished bowel sounds, hyperactive bowel sounds, hypoactive bowel sounds, organomegaly, mass, bruit, pulsatile mass, hernia - Extremities Exam Extremities exam: Present: normal inspection, full ROM, normal capillary refill. Absent: tenderness, pedal edema, calf tenderness, other - Back Exam Back exam: Present: normal inspection, full ROM. Absent: tenderness, CVA tenderness (R), CVA tenderness (L), muscle spasm, paraspinal tenderness, vert ebral tenderness, rash noted - Neurological Exam Neurological exam: Present: alert, oriented X3, CN II-XII intact, normal gait, reflexes normal. Absent: altered, abnormal gait, motor sensory deficit - Psychiatric Psychiatric exam: Present: normal affect, normal mood. Absent: depressed, agitated, anxious, flat affect, manic, homicidal ideation, suicidal ideation - Skin Skin exam: Present: warm, dry, intact, normal color. Absent: rash, cyanosis, diaphoretic, erythema, urticaria, vesicles, petechiae, pallor, abrasion, ecchymosis ED Course Vital Signs 10/25/21 10/26/21 10/26/21 13:28 06:30 07:00 Temperature 98.6 F Pulse Rate 72 72 67 Respiratory 20 21 20 Rate Blood Pressure 151/85 173/75 155/78 Blood Pressure [Right] O2 Sat by Pulse 99 93 98 Oximetry O2 Sat by Pulse Oximetry [ Posterior Bilateral] 10/26/21 10/26/21 10/26/21 07:30 08:17 09:30 Temperature Pulse Rate 75 73 Respiratory 18 18 Rate Blood Pressure 163/71 186/101 Blood Pressure [Right] O2 Sat by Pulse 97 96 Oximetry O2 Sat by Pulse Oximetry [ Posterior Bilateral] 10/26/21 10/26/21 10/26/21 09:45 10:00 10:15 Temperature Pulse Rate 76 783 H 78 Respiratory Rate Blood Pressure 173/91 178/99 169/89 Blood Pressure [Right] O2 Sat by Pulse Oximetry O2 Sat by Pulse Oximetry [ Posterior Bilateral] 10/26/21 10/26/21 10/26/21 10:32 10:45 11:00 Temperature 98.9 F Pulse Rate 71 75 83 Respiratory 20 Rate Blood Pressure 185/93 157/85 156/92 Blood Pressure [Right] O2 Sat by Pulse Oximetry O2 Sat by Pulse 98 Oximetry [ Posterior Bilateral] 0610/26/21 10/26/21 11:15 11:30 11:45 Temperature Pulse Rate 83 82 82 Respiratory Rate Blood Pressure 162/89 154/91 155/94 Blood Pressure [Right] O2 Sat by Pulse Oximetry O2 Sat by Pulse Oximetry [ Posterior Bilateral] 10/26/21 10/26/21 10/26/21 12:00 12:15 12:20 Temperature Pulse Rate 79 80 80 Respiratory Rate Blood Pressure 154/90 157/88 159/92 Blood Pressure [Right] O2 Sat by Pulse Oximetry O2 Sat by Pulse Oximetry [ Posterior Bilateral] 10/26/21 10/26/21 13:00 13:21 Temperature 98.8 F 98.3 F Pulse Rate 78 80 Respiratory 20 18 Rate Blood Pressure 170/90 Blood Pressure 164/82 [Right] O2 Sat by Pulse 99 Oximetry O2 Sat by Pulse 98 Oximetry [ Posterior Bilateral] - Reevaluation(s) Reevaluation #1: 10/26/21 07:18 pt is comfortable and well appearing; nad; again repeatedly denies cp, sob, difficulty breathing, dizziness, ro pain Reevaluation #2: 10/26/21 07:40 pt is comfortable, well appearing, nad; talking on cell phone with family member Reevaluation #3: 10/26/21 14:19 Pt has returned from hemodialysis; she is comfortable appearing; denies any complaints - Consultations Consultation #1: 10/26/21 07:50 CAse discussed with receptionist scheduler auto servicer, DR. Durant. Pt will be arranged to undergo hemodialysis today from the ER. ED Medical Decision Making - Lab Data Result diagrams: 10/25/21 14:06 10/25/21 14:06 - Radiology Data Radiology results: report reviewed - Medical Decision Making 71-year-old female with history of end-stage renal disease on hemodialysis Monday, congestive heart failure, type 2 diabetes, sent for hemodialysis. Vitals reviewed. Review of the chart demonstrates that the patient had checked into the emergency department 1 day ago and was awaiting evaluation for over 17 hours prior to this provider's start of shift time. Labs and chest x-ray reviewed she is well-appearing and her examination is nonfocal. Case reviewed with on-call auto servicer, . He will arrange for the patient to undergo hemodialysis today from the emergency department. Per Dain, the pt will need OT/PT and covid tests to be resulted prior to being permitted to return to [facility]. Patient has been accepted by Dr. Kulkarni, via our direct conversation via telephone, for admission to the hospitalist service and final disposition and further management Critical care attestation.: If time is entered above; I have spent that time in minutes in the direct care of this critically ill patient, excluding procedure time. ED Disposition Clinical Impression: ESRD on hemodialysis, Hypertension Disposition: ADMITTED INPATIENT Is pt being admited?: Yes Does the pt Need Aspirin: No Condition: Stable Instructions: Hypertension (ED) Referrals: AUSTIN DURON MD [Primary Care Provider] - 3-5 Days
--- NOTE | 2021-10-26 07:40 | XRay Report ---
CHEST 1 VIEW INDICATION / CLINICAL INFORMATION: chf, dialysis; p/w sob s/p missing dialysis x 5 da. COMPARISON: 09/16/2021 FINDINGS: SUPPORT DEVICES: None. HEART / MEDIASTINUM: Stable cardiomegaly LUNGS / PLEURA: Left basilar parenchymal disease has improved. No pneumothorax. ADDITIONAL FINDINGS: No significant additional findings. IMPRESSION: 1. Interval improvement. Signer Name: Wilder Alas MD Signed: 10/26/2021 7:35 AM Workstation Name: [id number]
[2021-10-26] MEDS ORDERED: SODIUM CHLORIDE 0.9% 100 ML IV PRN (08:00)
[2021-10-26] MEDS ORDERED: HEPARIN 10,000 UNITS/10 ML VIAL IV PRN (08:00)
--- NOTE | 2021-10-26 11:33 | Consultation ---
History of Present Illness - Reason for Consult Consult date: 10/26/21 end stage renal disease (71yr F on Rehab s/p fall with Fx Rt leg, c/o SOB ) Past History Past Medical History: ESRD, hypertension Social history: denies: smoking, alcohol abuse Family history: hypertension Medications and Allergies Allergies Allergy/AdvReac Type Severity Reaction Status Date / Time No Known Allergies Allergy Verified 09/14/21 15:42 Home Medications Medication Instructions Recorded Confirmed Last Taken Type Ondansetron [Zofran ODT TAB] 4 mg PO Q8HR PRN #15 tab.rapdis 01/21/20 09/15/21 09/14/21 Rx Ciprofloxacin HCl 500 mg PO Q12H #14 tablet 10/05/20 09/15/21 09/14/21 Rx metroNIDAZOLE [Flagyl TAB] 500 mg PO Q12HR #14 tab 10/05/20 09/15/21 09/14/21 Rx methOCARBAMOL [Robaxin TAB] 500 mg PO Q8HR PRN #20 tablet 10/29/20 09/15/21 09/14/21 Rx traMADoL [Ultram 50 MG tab] 50 mg PO Q6HR PRN #7 tablet 10/29/20 09/15/21 09/13/21 Rx Aspirin EC [Halfprin EC] 81 mg PO QDAY #30 tablet 09/17/21 Unknown Rx HYDROcodone/APAP 7.5-325 [[place] 1 each PO Q6HR PRN #12 tablet 09/17/21 Unknown Rx 7.5-325 mg TAB] Metaxalone [Skelaxin] 800 mg PO TID #30 tablet 09/17/21 Unknown Rx NIFEdipine XL [Procardia Xl] 60 mg PO QDAY #30 tablet 09/17/21 Unknown Rx Valsartan [Diovan] 160 mg PO BID #60 tablet 09/17/21 Unknown Rx carvediloL [Coreg] 6.25 mg PO BID #60 tablet 09/17/21 Unknown Rx Active Meds: Active Medications Heparin Sodium (Porcine) (Heparin 10,000 Units/10 Ml Vial) 3,000 unit IV RONAN PRN PRN Reason: hemodialysis Sodium Chloride (Nacl 0.9%) 100 mls @ 999 mls/hr IV RONAN PRN PRN Reason: Hypotension Review of Systems Constitutional: other (Awake & alert) Cardiovascular: edema, no chest pain, no orthopnea, no palpitations, no leg edema Respiratory: shortness of breath, no cough Gastrointestinal: no abdominal pain, no nausea, no vomiting Exam - Vital Signs Vital signs: Vital Signs Temp Pulse Resp BP Pulse Ox 98.6 F 72 20 151/85 99 10/25/21 13:28 10/25/21 13:28 10/25/21 13:28 10/25/21 13:28 10/25/21 13:28 - General Appearance General appearance: other (Awake & alert) EENT: PERRL, hearing intact Neck: Present: neck supple. Absent: JVD/HJR Respiratory: Rales Heart: regular, S1S2 Gastrointestinal: Present: other (Soft) Integumentary: no rash Neurologic: alert and oriented x3 Musculoskeletal: Present: other (Dressing Rt leg) Psychiatric: mood/affect appropriate Results - Lab Results 10/25/21 14:06 10/25/21 14:06 Most recent lab results Calcium 8.2 mg/dL (8.4-10.2) L 10/25/21 14:06 Phosphorus 9.20 mg/dL (2.5-4.5) H 10/25/21 14:06 Magnesium 2.60 mg/dL (1.7-2.3) H 10/25/21 14:06 Assessment and Plan ESRD - Pt seen on HD with good blood flow via Lt arm AVG Pulm Edema - UF as tolerated on HD Hypertension - Resume home meds Electrolyte Imbalance - Low K bath on HD. Resume Phos binder & f/u labs Thanks, will f/u with you
[2021-10-26 11:57] LABS: Hepatitis B Surface Antigen Non-Reactive (Negative); Hepatitis C Virus Antibody Non-Reactive (NonReactive)
[2021-10-26] MEDS ORDERED: ACETAMINOPHEN 325 MG TAB ONE (12:04)
--- NOTE | 2021-10-26 12:26 | Electrocardiograph Report ---
[facility] Test Date: 2021-10-25 Test Time: 13:42:08 Pat Name: RODNEY LANDAVERDE Department: Room: Gender: F [employer] Operator: GEE : 1950 Requested By: ED DOC Order Number: [id number] Reading MD: Jensen Cevallos Measurements Intervals Boss Rate: 73 P: 32 AK: 180 QRS: -10 QRSD: 77 T: 72 QT: 454 QTc: 501 Interpretive Statements Sinus rhythm Anterior infarct, old Prolonged QT interval Compared to ECG 09/14/2021 16:58:03 No significant change Electronically Signed On 10-26-2021 12:26:35 EDT by Jensen Cevallos
[2021-10-26] MEDS: CALCIUM ACETATE 667 MG CAP PO SCH ×2 (13:31→17:35)
--- NOTE | 2021-10-26 15:54 | History and Physical Report ---
History of Present Illness Chief complaint: I need to get dialysis History of present illness: 71 YO Female Assisted Facilty Resident at [facility] with HTN, HLD, ESRD on HD(T,R,Sa), Vascular Dementia, Cerebral Atherosclerosis, Debility presents to ED for evaluation. Patient reports "I need dialysis". Patient dates that she has experienced shortness of breath over the past 1 day with persistent symptoms over the same timeframe. Patient reports inability to undergo outpatient dialysis. Patient transported to [facility] for further care and evaluation of the aforementioned symptoms. The patient was seen and evaluated in the emergency department. All lab and imaging studies reviewed. Patient found to have end-stage renal disease in need of urgent dialysis, acidosis, as well as fluid overload. Patient admitted to medical floor due to increased risk of worsening symptoms. Nephrology team consulted in ED for urgent dialysis. Patient denies fever, chills, chest pain, palpitation, adductive cough, skin rash, recent contact, known exposure to COVID-19. No prior admission for review. All medication listed at time of admission has been reconciled. Advanced care planning conducted in ED. Past History Past Medical History: ESRD, hypertension Social history: denies: smoking, alcohol abuse Family history: hypertension Medications and Allergies Allergies Allergy/AdvReac Type Severity Reaction Status Date / Time No Known Allergies Allergy Verified 09/14/21 15:42 Home Medications Medication Instructions Recorded Confirmed Last Taken Type Ondansetron [Zofran ODT TAB] 4 mg PO Q8HR PRN #15 tab.rapdis 01/21/20 09/15/21 09/14/21 Rx Ciprofloxacin HCl 500 mg PO Q12H #14 tablet 10/05/20 09/15/21 09/14/21 Rx metroNIDAZOLE [Flagyl TAB] 500 mg PO Q12HR #14 tab 10/05/20 09/15/21 09/14/21 Rx methOCARBAMOL [Robaxin TAB] 500 mg PO Q8HR PRN #20 tablet 10/29/20 09/15/21 09/14/21 Rx traMADoL [Ultram 50 MG tab] 50 mg PO Q6HR PRN #7 tablet 10/29/20 09/15/21 09/13/21 Rx Aspirin EC [Halfprin EC] 81 mg PO QDAY #30 tablet 09/17/21 Unknown Rx HYDROcodone/APAP 7.5-325 [[place] 1 each PO Q6HR PRN #12 tablet 09/17/21 Unknown Rx 7.5-325 mg TAB] Metaxalone [Skelaxin] 800 mg PO TID #30 tablet 09/17/21 Unknown Rx NIFEdipine XL [Procardia Xl] 60 mg PO QDAY #30 tablet 09/17/21 Unknown Rx Valsartan [Diovan] 160 mg PO BID #60 tablet 09/17/21 Unknown Rx carvediloL [Coreg] 6.25 mg PO BID #60 tablet 09/17/21 Unknown Rx Active Meds: Active Medications Calcium Acetate (Calcium Acetate 667 Mg Cap) 2,001 mg PO TIDWM TELLY Last Admin: 10/26/21 13:31 Dose: 2,001 mg Heparin Sodium (Porcine) (Heparin 10,000 Units/10 Ml Vial) 3,000 unit IV RONAN PRN PRN Reason: hemodialysis Last Admin: 10/26/21 12:56 Dose: 3,000 unit Sodium Chloride (Nacl 0.9%) 100 mls @ 999 mls/hr IV RONAN PRN PRN Reason: Hypotension Review of Systems Constitutional: no weight loss, no weight gain, no fever, no chills Ears, nose, mouth and throat: no ear pain, no ear discharge, no decreased hearing, no nose pain, no nasal congestion Breasts: no change in shape Cardiovascular: shortness of breath, no chest pain, no orthopnea, no rapid/irregular heart beat Respiratory: no cough, no excessive sputum, no dyspnea on exertion Gastrointestinal: no abdominal pain, no vomiting, no diarrhea, no constipation, no hematemesis Genitourinary Female: no pelvic pain, no flank pain, no dysuria, no urinary frequency, no urgency Rectal: no pain, no incontinence, no bleeding Musculoskeletal: no neck pain, no arm numbness/tingling, no leg numbness/tingling Integumentary: no rash, no pruritis, no redness, no sores, no boils Neurological: no head injury, no transient paralysis, no weakness, no numbness, no tingling, no seizures, no lack of coordination Psychiatric: no anxiety, no memory loss, no sleep disturbances, no insomnia, no hypersomnia, no change in appetite Endocrine: no cold intolerance, no polyphagia, no excessive thirst, no polyuria, no excessive sweating Hematologic/Lymphatic: no easy bruising, no easy bleeding Allergic/Immunologic: no urticaria, no wheezing Exam - Constitutional Vitals: Temp Pulse Resp BP Pulse Ox 98.3 F 80 18 164/82 99 10/26/21 13:21 10/26/21 13:21 10/26/21 13:21 10/26/21 13:21 10/26/21 13:21 General appearance: Present: mild distress - EENT Eyes: Present: PERRL ENT: hearing intact, clear oral mucosa - Neck Neck: Present: supple, normal ROM - Respiratory Respiratory effort: normal Respiratory: bilateral: diminished, rhonchi - Cardiovascular Heart Sounds: Present: S1 & S2. Absent: rub, click - Extremities Extremities: pulses symmetrical, No edema Peripheral Pulses: within normal limits - Abdominal General gastrointestinal: Present: soft, non-tender, non-distended, normal bowel sounds Female genitourinary: Present: normal - Integumentary Integumentary: Present: clear, warm, dry - Musculoskeletal Musculoskeletal: gait normal, strength equal bilaterally - Psychiatric Psychiatric: appropriate mood/affect, intact judgment & insight - Neurologic Neurologic: CNII-XII intact, moves all extremities HEART Score - HEART Score Troponin: Troponin T < 0.010 ng/mL (0.00-0.029) 10/25/21 14:06 Results - Labs CBC & Chem 7: 10/25/21 14:06 10/25/21 14:06 Assessment and Plan - Patient Problems (1) ESRD on hemodialysis Current Visit: Yes Status: Chronic Plan to address problem: Nephrology team consulted in ED for urgent dialysis, supportive care, strict I's/O, avoid nephrotoxic agents. (2) Fluid overload Current Visit: Yes Status: Acute Qualifiers: Hypervolemia type: unspecified Qualified Code(s): E87.70 - Fluid overload, unspecified Plan to address problem: Dialysis as per renal team, monitor fluid balance, supportive care. (3) Metabolic acidosis Current Visit: Yes Status: Acute Plan to address problem: Urgent dialysis, supportive care, BMP, repeat BMP in AM. (4) DVT prophylaxis Current Visit: Yes Status: Acute Plan to address problem: SCD to bilateral lower extremities while in bed (5) Advance care planning Current Visit: Yes Status: Acute Plan to address problem: Disease education conducted, care plan discussed, diagnoses discussed, prognosis discussed, patient is full code. Patient and son acknowledged understanding and agreement with care plan, +30 minutes. (6) Preventative health care Current Visit: Yes Status: Acute Plan to address problem: Patient counseled regarding compliance with low-sodium diet, outpatient follow- up with primary care physician for all age and risk factor appropriate screening tests. +30 minutes.
[2021-10-26] MEDS ORDERED: HYDROmorphone 0.5 MG/0.5 ML INJ IV PRN (16:00)
[2021-10-26] MEDS ORDERED: ALBUTEROL 2.5 MG/3 ML NEBU IH PRN (16:00)
[2021-10-26] MEDS ORDERED: ONDANSETRON 4 MG/2 ML INJ IV PRN (16:00)
[2021-10-26] MEDS: oxyCODONE /ACETAMINOPHEN 5-325MG TAB PO PRN (22:11)
[2021-10-27] MEDS: oxyCODONE /ACETAMINOPHEN 5-325MG TAB PO PRN (05:19)
[2021-10-27 05:36] LABS: Basophils % (Auto) 0.8 % (0.0-1.8); Eosinophils # (Auto) 0.2 K/mm3 (0.0-0.4); Eosinophils % (Auto) 4.2 % (0.0-4.3); Hematocrit 29.7 % (30.3-42.9); Hemoglobin 9.6 gm/dl (10.1-14.3); Lymphocytes # (Auto) 1.4 K/mm3 (1.2-5.4); Lymphocytes % (Auto) 23.7 % (13.4-35.0); Mean Corpuscular HGB Conc 32 % (30-34); Mean Corpuscular Volume 89 fl (79-97); Monocytes # (Auto) 0.6 K/mm3 (0.0-0.8); Monocytes % (Auto) 10.3 % (0.0-7.3); Platelet Count 126 K/mm3 (140-440); Red Blood Count 3.34 M/mm3 (3.65-5.03); Red Cell Distribution Width 16.8 % (13.2-15.2)
[2021-10-27 06:00] LABS: Alanine Aminotransferase 19 units/L (7-56); Albumin 3.4 g/dL (3.9-5); Blood Urea Nitrogen 44 mg/dL (7-17); Calcium 8.5 mg/dL (8.4-10.2); Hemolysis Index 5
[2021-10-27 06:07] LABS: BUN/Creatinine Ratio 5
[2021-10-27] MEDS ORDERED: cloNIDine 0.1 MG TAB PO NR (06:42)
--- NOTE | 2021-10-27 09:11 | Discharge Summary ---
Providers - Providers Date of Admission: 10/26/21 08:15 Date of discharge: 10/27/21 Attending physician: LINDA BECKFORD MD 10/26/21 07:48 Consult to Physician [CONS] Stat Comment: Consulting Provider: JASE PULIDO Physician Instructions: Reason For Exam: pt needs dialysis today; missed dialysis x 1 week 10/26/21 11:21 Consult to Physician [CONS] Routine Comment: Consulting Provider: HEATHER ROBERT Physician Instructions: Reason For Exam: Missed dialysis 10/26/21 12:26 Occupational Therapy Evaluate and Treat [CONS] Urgent Comment: Reason For Exam: Eval& Treat for back to SNF Physical Therapy Evaluation and Treat [CONS] Urgent Comment: Reason For Exam: Eval& Treat for back to SNF Primary care physician: AUSTIN DURON Hospitalization Reason for admission: missed HD Condition: Stable Hospital course: 71-year-old female with history of hypertension, hyperlipidemia, ESRD on HD who presented to the ED in need of dialysis. The nursing facility that she was at has a hemodialysis center and due to her not having a chair there, she has missed her sessions. Nephrology was consulted and she was dialyzed. Patient will resume dialysis at her original outpatient center on [facility] Stable she was discharged. Disposition: 30 STILL A PATIENT Final Discharge Diagnosis (Prints w/discharge instructions): ESRD on HD. Fluid overload. Metabolic acidosis. Hyperkalemia Time spent for discharge: 20 MINUTES Core Measure Documentation - Palliative Care Palliative Care/ Comfort Measures: Not Applicable - Core Measures Any of the following diagnoses?: none Exam - Physical Exam Narrative exam: GENERAL: Well-developed well-nourished. In no acute distress. HEENT: Normocephalic. Atraumatic. NECK: Supple. CHEST/LUNGS: CTAB on room air HEART/CARDIOVASCULAR: RRR. No murmur, rubs or gallops appreciated. ABDOMEN: +BS. NT/ND. SKIN: No rashes noted. NEURO: No focal motor deficit. Follows all commands. MUSCULOSKELETAL: No joint effusion EXTREMITIES: Bandage from right leg repair. No cyanosis, clubbing or edema. PSYCH: Cooperative. - Constitutional Vitals: Temp Pulse Resp BP Pulse Ox 98.5 F 86 18 184/94 98 10/27/21 04:26 10/27/21 06:55 10/27/21 04:26 10/27/21 06:55 10/27/21 07:23 Plan Activity: advance as tolerated Diet: renal Care Plan Goals: Please follow-up with your primary care provider. Please resume dialysis at your old outpatient center on Tuesdays, and Saturdays. Follow up with: AUSTIN DURON MD [Primary Care Provider] - 3-5 Days
[2021-10-27] MEDS: carvediloL 6.25 MG TAB PO SCH ×2 (09:18→22:36)
[2021-10-27] MEDS: CALCIUM ACETATE 667 MG CAP PO SCH ×3 (09:18→16:02)
[2021-10-27] MEDS: ASPIRIN EC 81 MG TAB PO SCH (09:19)
[2021-10-27] MEDS: VALSARTAN 160MG TAB PO SCH ×2 (09:19→22:36)
[2021-10-27] MEDS: NIFEdipine XL 60 MG TAB PO SCH (09:19)
--- NOTE | 2021-10-27 11:50 | Progress Note ---
Assessment and Plan ESRD: Patient is on maintenance hemodialysis. Hemodialysis: 10/26. 2. FEN: Hyperkalemia, improved. UF with HD as tolerated. Phos binders. Monitor lytes and volume status. 3. Hypertension: Volume control with HD. Adjust BP meds as needed. Monitor BP. 4. Normochromic anemia, POA: Likely 2/2 ESRD. Epogen as needed. Subjective: Patient was seen and examined at the bedside. Doing ok. Examination: General appearance: well-developed, appears stated age, no distress HEENT: atraumatic, pupils equal Neck: trachea midline Respiratory: ctab Heart: S1S2, regular, no murmur Abdomen: soft, bowel sounds heard, NT Integumentary: no obvious rash Neurologic: AO, able to move extremities Ext: no edema Hemodialysis access: L arm AVF Subjective Date of service: 10/27/21 Objective - Vital Signs Vital signs: Vital Signs - 12hr 10/27/21 10/27/21 10/27/21 04:26 06:55 07:23 Temperature 98.5 F Pulse Rate 83 86 Respiratory 18 Rate Blood Pressure 189/94 184/94 O2 Sat by Pulse 96 98 Oximetry 10/27/21 09:18 Temperature Pulse Rate 78 Respiratory Rate Blood Pressure 166/79 O2 Sat by Pulse Oximetry - Lab 10/27/21 05:12 10/27/21 05:12 Most recent lab results Calcium 8.5 mg/dL (8.4-10.2) 10/27/21 05:12 Phosphorus 7.00 mg/dL (2.5-4.5) H 10/27/21 05:12 Magnesium 2.20 mg/dL (1.7-2.3) 10/27/21 05:12 Medications & Allergies - Medications Allergies/Adverse Reactions: Allergies No Known Allergies Allergy (Verified 09/14/21 15:42) Home Medications: Home Medications Medication Instructions Recorded Confirmed Last Taken Type Ondansetron [Zofran ODT TAB] 4 mg PO Q8HR PRN #15 tab.rapdis 01/21/20 10/27/21 09/14/21 Rx Ciprofloxacin HCl 500 mg PO Q12H #14 tablet 10/05/20 10/27/21 09/14/21 Rx metroNIDAZOLE [Flagyl TAB] 500 mg PO Q12HR #14 tab 10/05/20 10/27/21 09/14/21 Rx methOCARBAMOL [Robaxin TAB] 500 mg PO Q8HR PRN #20 tablet 10/29/20 10/27/21 09/14/21 Rx traMADoL [Ultram 50 MG tab] 50 mg PO Q6HR PRN #7 tablet 10/29/20 10/27/21 09/13/21 Rx Aspirin EC [Halfprin EC] 81 mg PO QDAY #30 tablet 09/17/21 10/27/21 Unknown Rx HYDROcodone/APAP 7.5-325 [[place] 1 each PO Q6HR PRN #12 tablet 09/17/21 10/27/21 Unknown Rx 7.5-325 mg TAB] Metaxalone [Skelaxin] 800 mg PO TID #30 tablet 09/17/21 10/27/21 Unknown Rx NIFEdipine XL [Procardia Xl] 60 mg PO QDAY #30 tablet 09/17/21 10/27/21 Unknown Rx Valsartan [Diovan] 160 mg PO BID #60 tablet 09/17/21 10/27/21 Unknown Rx carvediloL [Coreg] 6.25 mg PO BID #60 tablet 09/17/21 10/27/21 Unknown Rx Calcium Acetate [Phoslo] 2,001 mg PO TIDWM capsule 10/27/21 Unknown Rx Active Medications: Generic Name Dose Route Start Last Admin Trade Name Stefanq PRN Reason Stop Dose Admin Acetaminophen 650 mg 10/26/21 16:00 Acetaminophen 325 Mg Tab PO Q4H PRN Pain MILD(1-3)/Fever >100.5/MARRUFO Albuterol 2.5 mg 10/26/21 16:00 Albuterol 2.5 Mg/3 Ml Nebu IH Q4HRT PRN Shortness Of Breath Aspirin 81 mg 10/27/21 10:00 10/27/21 09:19 Aspirin Ec 81 Mg Tab PO 81 mg QDAY TELLY Administration Calcium Acetate 2,001 mg 10/26/21 12:00 10/27/21 09:18 Calcium Acetate 667 Mg Cap PO 2,001 mg TIDWM TELLY Administration Carvedilol 6.25 mg 10/27/21 10:00 10/27/21 09:18 Carvedilol 6.25 Mg Tab PO 6.25 mg BID TELLY Administration Heparin Sodium (Porcine) 3,000 unit 10/26/21 08:00 10/26/21 12:56 Heparin 10,000 Units/10 Ml Vial IV 3,000 unit RONAN PRN Administration hemodialysis Hydromorphone HCl 0.5 mg 10/26/21 16:00 Hydromorphone 0.5 Mg/0.5 Ml Inj IV Q13H PRN Pain , Severe (7-10) Sodium Chloride 100 mls @ 999 mls/hr 10/26/21 08:00 Nacl 0.9% IV RONAN PRN Hypotension Metaxalone 800 mg 10/27/21 08:00 Metaxalone 800 Mg Tab PO TID TELLY Nifedipine 60 mg 10/27/21 10:00 10/27/21 09:19 Nifedipine Xl 60 Mg Tab PO 60 mg QDAY TELLY Administration Ondansetron HCl 4 mg 10/26/21 16:00 Ondansetron 4 Mg/2 Ml Inj IV Q8H PRN Nausea And Vomiting Oxycodone/Acetaminophen 1 tab 10/26/21 16:30 10/27/21 05:19 Oxycodone /Acetaminophen 5-325mg Tab PO 1 tab Q6H PRN Administration Pain, Moderate (4-6) Sodium Chloride 10 ml 10/26/21 16:00 10/27/21 09:19 Sodium Chloride 0.9% 10 Ml Flush Syringe IV 10 ml BID TELLY Administration Sodium Chloride 10 ml 10/26/21 16:00 Sodium Chloride 0.9% 10 Ml Flush Syringe IV PRN PRN LINE FLUSH Valsartan 160 mg 10/27/21 10:00 10/27/21 09:19 Valsartan 160mg Tab PO 160 mg BID TELLY Administration
[2021-10-27] MEDS: METAXALONE 800 MG TAB PO SCH ×3 (12:33→22:36)
[2021-10-27] MEDS: ACETAMINOPHEN 325 MG TAB PO PRN ×2 (16:02→22:37)
[2021-10-28] MEDS ORDERED: EPOETIN ALFA-EPBX 10,000 UNIT/1 ML VIAL SUB-Q PRN (08:23)
--- NOTE | 2021-10-28 08:25 | Progress Note ---
Assessment and Plan ESRD: Patient is on maintenance hemodialysis. Hemodialysis: 10/26. HD today. 2. FEN: Hyperkalemia, improved. UF with HD as tolerated. Phos binders. Monitor lytes and volume status. 3. Hypertension: Volume control with HD. Adjust BP meds as needed. Monitor BP. 4. Normochromic anemia, POA: Likely 2/2 ESRD. Epogen as needed. Subjective: Patient was seen and examined at the bedside. Doing ok. Examination: General appearance: well-developed, appears stated age, no distress HEENT: atraumatic, pupils equal Neck: trachea midline Respiratory: ctab Heart: S1S2, regular, no murmur Abdomen: soft, bowel sounds heard, NT Integumentary: no obvious rash Neurologic: AO, able to move extremities Ext: no edema Hemodialysis access: L arm AVF Subjective Date of service: 10/28/21 Objective - Vital Signs Vital signs: Vital Signs - 12hr 10/27/21 10/27/21 10/27/21 22:00 22:33 22:36 Temperature 98.1 F Pulse Rate 82 82 Respiratory 17 Rate Respiratory 17 Rate [Right Lower Leg] Blood Pressure 173/86 Blood Pressure 173/66 [Right] O2 Sat by Pulse 97 Oximetry 10/28/21 10/28/21 10/28/21 00:39 06:15 07:00 Temperature 97.8 F 98.6 F Pulse Rate 77 70 Respiratory 18 20 Rate Respiratory Rate [Right Lower Leg] Blood Pressure 153/72 183/85 Blood Pressure [Right] O2 Sat by Pulse 95 99 96 Oximetry 10/28/21 07:38 Temperature Pulse Rate Respiratory Rate Respiratory Rate [Right Lower Leg] Blood Pressure Blood Pressure [Right] O2 Sat by Pulse 97 Oximetry - Lab 10/27/21 05:12 10/27/21 05:12 Most recent lab results Calcium 8.5 mg/dL (8.4-10.2) 10/27/21 05:12 Phosphorus 7.00 mg/dL (2.5-4.5) H 10/27/21 05:12 Magnesium 2.20 mg/dL (1.7-2.3) 10/27/21 05:12 Medications & Allergies - Medications Allergies/Adverse Reactions: Allergies No Known Allergies Allergy (Verified 09/14/21 15:42) Home Medications: Home Medications Medication Instructions Recorded Confirmed Last Taken Type Ondansetron [Zofran ODT TAB] 4 mg PO Q8HR PRN #15 tab.rapdis 01/21/20 10/27/21 09/14/21 Rx Ciprofloxacin HCl 500 mg PO Q12H #14 tablet 10/05/20 10/27/21 09/14/21 Rx metroNIDAZOLE [Flagyl TAB] 500 mg PO Q12HR #14 tab 10/05/20 10/27/21 09/14/21 Rx methOCARBAMOL [Robaxin TAB] 500 mg PO Q8HR PRN #20 tablet 10/29/20 10/27/21 09/14/21 Rx traMADoL [Ultram 50 MG tab] 50 mg PO Q6HR PRN #7 tablet 10/29/20 10/27/21 09/13/21 Rx Aspirin EC [Halfprin EC] 81 mg PO QDAY #30 tablet 09/17/21 10/27/21 Unknown Rx HYDROcodone/APAP 7.5-325 [[place] 1 each PO Q6HR PRN #12 tablet 09/17/21 10/27/21 Unknown Rx 7.5-325 mg TAB] Metaxalone [Skelaxin] 800 mg PO TID #30 tablet 09/17/21 10/27/21 Unknown Rx NIFEdipine XL [Procardia Xl] 60 mg PO QDAY #30 tablet 09/17/21 10/27/21 Unknown Rx Valsartan [Diovan] 160 mg PO BID #60 tablet 09/17/21 10/27/21 Unknown Rx carvediloL [Coreg] 6.25 mg PO BID #60 tablet 09/17/21 10/27/21 Unknown Rx Calcium Acetate [Phoslo] 2,001 mg PO TIDWM capsule 10/27/21 Unknown Rx Active Medications: Generic Name Dose Route Start Last Admin Trade Name Freq PRN Reason Stop Dose Admin Acetaminophen 650 mg 10/26/21 16:00 10/27/21 22:37 Acetaminophen 325 Mg Tab PO 650 mg Q4H PRN Administration Pain MILD(1-3)/Fever >100.5/MARRUFO Albuterol 2.5 mg 10/26/21 16:00 Albuterol 2.5 Mg/3 Ml Nebu IH Q4HRT PRN Shortness Of Breath Aspirin 81 mg 10/27/21 10:00 06/08/22 09:19 Aspirin Ec 81 Mg Tab PO 81 mg QDAY TELLY Administration Calcium Acetate 2,001 mg 10/26/21 12:00 10/27/21 16:02 Calcium Acetate 667 Mg Cap PO 2,001 mg TIDWM TELLY Administration Carvedilol 6.25 mg 10/27/21 10:00 10/27/21 22:36 Carvedilol 6.25 Mg Tab PO 6.25 mg BID TELLY Administration Heparin Sodium (Porcine) 3,000 unit 10/26/21 08:00 10/26/21 12:56 Heparin 10,000 Units/10 Ml Vial IV 3,000 unit RONAN PRN Administration hemodialysis Hydromorphone HCl 0.5 mg 10/26/21 16:00 Hydromorphone 0.5 Mg/0.5 Ml Inj IV Q13H PRN Pain , Severe (7-10) Sodium Chloride 100 mls @ 999 mls/hr 10/26/21 08:00 Nacl 0.9% IV RONAN PRN Hypotension Metaxalone 800 mg 10/27/21 08:00 10/27/21 22:36 Metaxalone 800 Mg Tab PO 800 mg TID TELLY Administration Nifedipine 60 mg 10/27/21 10:00 10/27/21 09:19 Nifedipine Xl 60 Mg Tab PO 60 mg QDAY TELLY Administration Ondansetron HCl 4 mg 10/26/21 16:00 Ondansetron 4 Mg/2 Ml Inj IV Q8H PRN Nausea And Vomiting Oxycodone/Acetaminophen 1 tab 10/26/21 16:30 10/27/21 05:19 Oxycodone /Acetaminophen 5-325mg Tab PO 1 tab Q6H PRN Administration Pain, Moderate (4-6) Sodium Chloride 10 ml 10/26/21 16:00 10/28/21 01:10 Sodium Chloride 0.9% 10 Ml Flush Syringe IV 10 ml BID TELLY Administration Sodium Chloride 10 ml 10/26/21 16:00 Sodium Chloride 0.9% 10 Ml Flush Syringe IV PRN PRN LINE FLUSH Valsartan 160 mg 10/27/21 10:00 10/27/21 22:36 Valsartan 160mg Tab PO 160 mg BID TELLY Administration
[2021-10-28] MEDS: CALCIUM ACETATE 667 MG CAP PO SCH ×3 (09:47→16:37)
[2021-10-28] MEDS: METAXALONE 800 MG TAB PO SCH ×2 (09:49→16:37)
[2021-10-28] MEDS: carvediloL 6.25 MG TAB PO SCH (09:52)
[2021-10-28] MEDS: ASPIRIN EC 81 MG TAB PO SCH (09:53)
[2021-10-28] MEDS: NIFEdipine XL 60 MG TAB PO SCH (09:53)
[2021-10-28] MEDS: VALSARTAN 160MG TAB PO SCH (09:53)
[2021-10-28 16:15] VITALS: BP 180/91
== END 2021-10-28 17:06 ==
LOC: ED 13:01 → INTOOBSV 10-26 08:15 → 3A 10-26 08:15
PROVIDERS: ADMIT Internal Medicine; ATTEND Student in an Organized Health Care Education/Training Program
DX: E87.70 Fluid overload, unspecified (principal); Z20.822 Contact with and (suspected) exposure to COVID-19; E87.5 Hyperkalemia; E87.2 Acidosis; I12.0 Hypertensive chronic kidney disease with stage 5 chronic kidney disease or end stage renal disease; N18.6 End stage renal disease; E11.22 Type 2 diabetes mellitus with diabetic chronic kidney disease; J44.9 Chronic obstructive pulmonary disease, unspecified; D63.1 Anemia in chronic kidney disease; J81.1 Chronic pulmonary edema; E78.5 Hyperlipidemia, unspecified; R29.818 Other symptoms and signs involving the nervous system; Z99.2 Dependence on renal dialysis; Z79.82 Long term (current) use of aspirin; Z79.899 Other long term (current) drug therapy; Z98.890 Other specified postprocedural states
CPT/HCPCS: 36415; 71045; 80053; 80074; 82962; 83735; 84100; 84484; 85025; 93005; 97165; 99285; G0257; G0378; J1644; U0003

== ENCOUNTER 2021-11-04 01:32 | Observation (INO) | payer OTHER ==
[2021-11-04] MEDS ORDERED: methylPREDNISolone Sod Succinate 125 MG/2 ML INJ IV ONE (01:41)
[2021-11-04] MEDS ORDERED: IPRATROPIUM 0.02% NEBU 2.5 ML IH ONE ×2 (01:41→01:44)
[2021-11-04] MEDS ORDERED: MAGNESIUM SULFATE 2 GM/50 ML BAG IV ONE (01:41)
[2021-11-04] MEDS ORDERED: ALBUTEROL 2.5 MG/3 ML NEBU IH ONE ×2 (01:41→01:44)
[2021-11-04] MEDS ORDERED: NITROGLYCERIN 0.4 MG TAB SUBL SL ONE (01:44)
[2021-11-04] MEDS ORDERED: hydrALAZINE 20 MG/1 ML INJ IV ONE (01:44)
--- NOTE | 2021-11-04 01:48 | Emergency Department Report ---
ED Shortness of Breath HPI - General Stated Complaint: JASSON Time Seen by Provider: 11/04/21 01:41 Source: patient, EMS - History of Present Illness Initial Comments: Patient is 71 years old female with history of end-stage renal disease on hemodialysis, COPD and CHF. Patient brought to the emergency room via EMS from a local long-term for evaluation of difficulty in breathing that started today. EMS reported that patient initial oxygen saturation was 89%. Upon arrival to the ER patient was tachypneic with diminished breath sound on both side and diffuse wheezing. Patient also found to have a blood pressure of 220/119. Patient started on albuterol, Atrovent, Solu-Medrol and magnesium sulfate and BiPAP. I also added hydralazine and nitroglycerin. MD Complaint: shortness of breath -: Sudden Severity: moderate Known History Of: COPD, congestive heart failure - Related Data Previous Rx's Medication Instructions Recorded Last Taken Type Ondansetron [Zofran ODT TAB] 4 mg PO Q8HR PRN #15 tab.rapdis 01/21/20 09/14/21 Rx Ciprofloxacin HCl 500 mg PO Q12H #14 tablet 10/05/20 09/14/21 Rx metroNIDAZOLE [Flagyl TAB] 500 mg PO Q12HR #14 tab 10/05/20 09/14/21 Rx methOCARBAMOL [Robaxin TAB] 500 mg PO Q8HR PRN #20 tablet 10/29/20 09/14/21 Rx traMADoL [Ultram 50 MG tab] 50 mg PO Q6HR PRN #7 tablet 10/29/20 09/13/21 Rx Aspirin EC [Halfprin EC] 81 mg PO QDAY #30 tablet 09/17/21 Unknown Rx HYDROcodone/APAP 7.5-325 [[place] 1 each PO Q6HR PRN #12 tablet 09/17/21 Unknown Rx 7.5-325 mg TAB] Metaxalone [Skelaxin] 800 mg PO TID #30 tablet 09/17/21 Unknown Rx NIFEdipine XL [Procardia Xl] 60 mg PO QDAY #30 tablet 09/17/21 Unknown Rx Valsartan [Diovan] 160 mg PO BID #60 tablet 09/17/21 Unknown Rx carvediloL [Coreg] 6.25 mg PO BID #60 tablet 09/17/21 Unknown Rx Calcium Acetate [Phoslo] 2,001 mg PO TIDWM capsule 10/27/21 Unknown Rx Allergies Allergy/AdvReac Type Severity Reaction Status Date / Time No Known Allergies Allergy Verified 09/14/21 15:42 ED Review of Systems ROS: Stated complaint: JASSON Other details as noted in HPI Comment: All other systems reviewed and negative Constitutional: denies: chills, fever Respiratory: cough, orthopnea, shortness of breath, SOB with exertion, SOB at rest, wheezing. denies: stridor Cardiovascular: denies: chest pain, palpitations, dyspnea on exertion Gastrointestinal: denies: abdominal pain, nausea, vomiting, diarrhea, constipation, hematemesis, melena, hematochezia Musculoskeletal: denies: back pain Neurological: denies: headache, weakness, numbness, paresthesias, confusion, abnormal gait ED Past Medical Hx - Past Medical History Hx Hypertension: Yes Hx Diabetes: Yes Hx Renal Disease: Yes (Tues, Th, Sat) Hx COPD: Yes - Surgical History Additional Surgical History: VAs cath to right chest, right leg sx for fx - Social History Smoking Status: Never Smoker - Medications Home Medications: Home Medications Medication Instructions Recorded Confirmed Last Taken Type Ondansetron [Zofran ODT TAB] 4 mg PO Q8HR PRN #15 tab.rapdis 01/21/20 10/27/21 09/14/21 Rx Ciprofloxacin HCl 500 mg PO Q12H #14 tablet 10/05/20 10/27/21 09/14/21 Rx metroNIDAZOLE [Flagyl TAB] 500 mg PO Q12HR #14 tab 10/05/20 10/27/21 09/14/21 Rx methOCARBAMOL [Robaxin TAB] 500 mg PO Q8HR PRN #20 tablet 10/29/20 10/27/21 09/14/21 Rx traMADoL [Ultram 50 MG tab] 50 mg PO Q6HR PRN #7 tablet 10/29/20 10/27/21 09/13/21 Rx Aspirin EC [Halfprin EC] 81 mg PO QDAY #30 tablet 09/17/21 10/27/21 Unknown Rx HYDROcodone/APAP 7.5-325 [[place] 1 each PO Q6HR PRN #12 tablet 09/17/21 10/27/21 Unknown Rx 7.5-325 mg TAB] Metaxalone [Skelaxin] 800 mg PO TID #30 tablet 09/17/21 10/27/21 Unknown Rx NIFEdipine XL [Procardia Xl] 60 mg PO QDAY #30 tablet 09/17/21 10/27/21 Unknown Rx Valsartan [Diovan] 160 mg PO BID #60 tablet 09/17/21 10/27/21 Unknown Rx carvediloL [Coreg] 6.25 mg PO BID #60 tablet 09/17/21 10/27/21 Unknown Rx Calcium Acetate [Phoslo] 2,001 mg PO TIDWM capsule 10/27/21 Unknown Rx ED Physical Exam - General General appearance: alert, in distress - Head Head exam: Present: atraumatic, normocephalic, normal inspection - Eye Eye exam: Present: normal appearance - ENT ENT exam: Present: normal exam, normal orophraynx, mucous membranes moist - Neck Neck exam: Present: normal inspection, full ROM. Absent: tenderness, meningismus - Respiratory Respiratory exam: Present: respiratory distress, wheezes, rales, rhonchi, accessory muscle use, decreased breath sounds, prolonged expiratory - Cardiovascular Cardiovascular Exam: Present: regular rate, normal rhythm, normal heart sounds - GI/Abdominal GI/Abdominal exam: Present: soft, normal bowel sounds. Absent: distended, tenderness, guarding, rebound, rigid, organomegaly, mass, bruit, pulsatile mass, hernia - Extremities Exam Extremities exam: Present: normal inspection, full ROM, normal capillary refill. Absent: calf tenderness - Back Exam Back exam: Present: normal inspection. Absent: CVA tenderness (R), CVA tenderness (L) - Neurological Exam Neurological exam: Present: alert, oriented X3, CN II-XII intact - Psychiatric Psychiatric exam: Present: normal mood - Skin Skin exam: Present: warm, normal color ED Course Vital Signs 11/04/21 11/04/21 11/04/21 02:05 02:16 02:31 Pulse Rate 146 H 136 H 121 H Respiratory 39 H 39 H Rate Blood Pressure 225/131 170/107 O2 Sat by Pulse 100 100 Oximetry 11/04/21 02:35 Pulse Rate 140 H Respiratory Rate Blood Pressure 225/131 O2 Sat by Pulse Oximetry ED Medical Decision Making - Lab Data Result diagrams: 11/04/21 01:52 11/04/21 01:52 - EKG Data EKG shows normal: sinus rhythm Rate: tachycardia - Radiology Data Radiology results: report reviewed - Medical Decision Making Patient is 71 years old female with history of end-stage renal disease on hemodialysis, COPD and CHF. Patient brought to the emergency room via EMS from a local long-term for evaluation of difficulty in breathing that started today. EMS reported that patient initial oxygen saturation was 89%. Upon arrival to the ER patient was tachypneic with diminished breath sound on both side and diffuse wheezing. Patient also found to have a blood pressure of 220 /119. Patient started on albuterol, Atrovent, Solu-Medrol and magnesium sulfate and BiPAP. I also added hydralazine and nitroglycerin. Patient stated that she is feeling better. Labs reviewed and showed elevated creatinine and BUN however potassium is within normal limits. Chest x-ray showed volume overload. I discussed the patient with Dr. Durant, software test and validation engineer, he stated that he would with emergency dialysis order. I discussed the patient with Dr. Menendez, he agreed to admit the patient to medical service for further management. Critical Care Time: Yes Critical care time in (mins) excluding proc time.: 35 Critical care attestation.: If time is entered above; I have spent that time in minutes in the direct care of this critically ill patient, excluding procedure time. ED Disposition Clinical Impression: Acute respiratory failure, Acute exacerbation of CHF (congestive heart failure), Volume overload, End-stage renal disease needing dialysis Disposition: 09 ADMITTED INPATIENT Is pt being admited?: Yes Condition: Stable Referrals: PRIMARY CARE, [Primary Care Provider] - 3-5 Days
[2021-11-04] MEDS ORDERED: LORazepam 2 MG/ML VIAL ONE (02:12)
[2021-11-04 02:22] LABS: Basophils # (Auto) 0.1 K/mm3 (0.0-0.1); Basophils % (Auto) 0.5 % (0.0-1.8); Eosinophils # (Auto) 0.2 K/mm3 (0.0-0.4); Eosinophils % (Auto) 1.6 % (0.0-4.3); Hematocrit 32.2 % (30.3-42.9); Hemoglobin 10.1 gm/dl (10.1-14.3); Lymphocytes # (Auto) 3.8 K/mm3 (1.2-5.4); Lymphocytes % (Auto) 34.2 % (13.4-35.0); Mean Corpuscular HGB Conc 31 % (30-34); Mean Corpuscular Volume 87 fl (79-97); Monocytes # (Auto) 0.5 K/mm3 (0.0-0.8); Monocytes % (Auto) 4.9 % (0.0-7.3); Platelet Count 198 K/mm3 (140-440); Red Blood Count 3.68 M/mm3 (3.65-5.03); Red Cell Distribution Width 16.5 % (13.2-15.2)
[2021-11-04 02:29] LABS: Calcium 8.3 mg/dL (8.4-10.2)
[2021-11-04] MEDS ORDERED: LORazepam 2 MG/ML VIAL IV ONE (02:37)
--- NOTE | 2021-11-04 02:44 | XRay Report ---
CHEST 1 VIEW INDICATION / CLINICAL INFORMATION: Y. COMPARISON: Chest x-ray 10/26/2021 FINDINGS: SUPPORT DEVICES: None. HEART / MEDIASTINUM: Borderline to mild cardiomegaly. LUNGS / PLEURA: Bilateral increase in perihilar vascular markings as well as linear interstitial rachel ings within the mid and lower chest. Additional interval increase in airspace opacities within the ca rdiophrenic angles. BONES: No significant osseous abnormality. ADDITIONAL FINDINGS: Vascular stent upper left arm. IMPRESSION: 1. Appearance of the chest suggests volume overload and/or decompensated CHF with vascular congestion as well as pulmonary edema. Signer Name: Juventino Garcia II, MD Signed: 11/04/2021 2:40 AM Workstation Name: [id number]
[2021-11-04 02:56] LABS: Partial Thromboplastin Time 33.7 Sec. (24.2-36.6)
[2021-11-04 03:44] LABS: ABG Base Excess -2.9 mmol/L (-2.0-3.0); ABG HCO3 21.2 mmol/L (20.0-26.0); ABG Methemoglobin 0.5 % (0.0-1.5); ABG Oxygen Saturation 97.1 % (95.0-99.0); ABG PCO2 33.6 mm Hg; ABG PH 7.416 pH Units (7.350-7.450); ABG PO2 83.8 mm Hg (80.0-90.0)
[2021-11-04] MEDS ORDERED: MORPHINE 2 MG/1 ML INJ IV PRN (04:28)
[2021-11-04] MEDS ORDERED: ALBUTEROL 2.5 MG/3 ML NEBU IH PRN (04:28)
[2021-11-04] MEDS ORDERED: MORPHINE 4 MG/1 ML INJ IV PRN (04:28)
[2021-11-04] MEDS ORDERED: ONDANSETRON 4 MG/2 ML INJ IV PRN (04:28)
[2021-11-04] MEDS ORDERED: hydrALAZINE 20 MG/1 ML INJ IV PRN (04:30)
--- NOTE | 2021-11-04 04:35 | History and Physical Report ---
History of Present Illness Date of examination: 11/04/21 Date of admission: 11/04/21 Chief complaint: Difficulty in breathing History of present illness: 71 years old female with history of CHF, COPD and end-stage renal disease on hemodialysis was brought to the emergency room via EMS from a local detention for evaluation of difficulty in breathing that started today. EMS reported that patient initial oxygen saturation was 89%. Upon arrival to the ER patient was tachypneic with diminished breath sound on both side and diffuse wheezing. Patient also found to have a blood pressure of 220/119. Patient started on albuterol, Atrovent, Solu-Medrol and magnesium sulfate and BiPAP. Patient was given hydralazine and nitroglycerin. In the emergency room patient is found to have BUN of 43 and creatinine 8.9 ,chest x-ray showed volume overload. case discussed the patient with Dr. Durant, shot tube machine tender, he stated that he would with emergency dialysis order. Past History Past Medical History: COPD, diabetes, ESRD, hypertension Past Surgical History: Other (VAs cath to right chest, right leg sx for fx) Social history: no significant social history Family history: hypertension Medications and Allergies Allergies Allergy/AdvReac Type Severity Reaction Status Date / Time No Known Allergies Allergy Verified 09/14/21 15:42 Home Medications Medication Instructions Recorded Confirmed Last Taken Type Ondansetron [Zofran ODT TAB] 4 mg PO Q8HR PRN #15 tab.rapdis 01/21/20 10/27/21 09/14/21 Rx Ciprofloxacin HCl 500 mg PO Q12H #14 tablet 10/05/20 10/27/21 09/14/21 Rx metroNIDAZOLE [Flagyl TAB] 500 mg PO Q12HR #14 tab 10/05/20 10/27/21 09/14/21 Rx methOCARBAMOL [Robaxin TAB] 500 mg PO Q8HR PRN #20 tablet 10/29/20 10/27/21 09/14/21 Rx traMADoL [Ultram 50 MG tab] 50 mg PO Q6HR PRN #7 tablet 10/29/20 10/27/21 09/13/21 Rx Aspirin EC [Halfprin EC] 81 mg PO QDAY #30 tablet 09/17/21 10/27/21 Unknown Rx HYDROcodone/APAP 7.5-325 [[place] 1 each PO Q6HR PRN #12 tablet 09/17/21 10/27/21 Unknown Rx 7.5-325 mg TAB] Metaxalone [Skelaxin] 800 mg PO TID #30 tablet 09/17/21 10/27/21 Unknown Rx NIFEdipine XL [Procardia Xl] 60 mg PO QDAY #30 tablet 09/17/21 10/27/21 Unknown Rx Valsartan [Diovan] 160 mg PO BID #60 tablet 09/17/21 10/27/21 Unknown Rx carvediloL [Coreg] 6.25 mg PO BID #60 tablet 09/17/21 10/27/21 Unknown Rx Calcium Acetate [Phoslo] 2,001 mg PO TIDWM capsule 10/27/21 Unknown Rx Active Meds: Active Medications Acetaminophen (Acetaminophen 325 Mg Tab) 650 mg PO Q4H PRN PRN Reason: Pain MILD(1-3)/Fever >100.5/MARRUFO Albuterol (Albuterol 2.5 Mg/3 Ml Nebu) 2.5 mg IH Q3HRT PRN PRN Reason: Shortness Of Breath Albuterol/Ipratropium (Ipratropium/Albuterol Sulfate 3 Ml Ampul.Neb) 1 ampul IH Q6HRT TELLY Famotidine (Famotidine 20 Mg Tab) 20 mg PO BID TELLY Heparin Sodium (Porcine) (Heparin 5,000 Unit/1 Ml Vial) 5,000 unit SUB-Q Q12HR TELLY Hydralazine HCl (Hydralazine 20 Mg/1 Ml Inj) 10 mg IV Q6H PRN PRN Reason: Blood Pressure Morphine Sulfate (Morphine 2 Mg/1 Ml Inj) 2 mg IV Q4H PRN PRN Reason: Pain, Moderate (4-6) Morphine Sulfate (Morphine 4 Mg/1 Ml Inj) 4 mg IV Q4H PRN PRN Reason: Pain , Severe (7-10) Ondansetron HCl (Ondansetron 4 Mg/2 Ml Inj) 4 mg IV Q8H PRN PRN Reason: Nausea And Vomiting Sodium Chloride (Sodium Chloride 0.9% 10 Ml Flush Syringe) 10 ml IV BID TELLY Sodium Chloride (Sodium Chloride 0.9% 10 Ml Flush Syringe) 10 ml IV PRN PRN PRN Reason: LINE FLUSH Review of Systems All systems: negative Cardiovascular: shortness of breath, dyspnea on exertion Respiratory: shortness of breath, dyspnea on exertion Exam - Constitutional Vitals: Temp Pulse Resp BP Pulse Ox 98.3 F 106 H 28 H 141/85 99 11/04/21 02:51 11/04/21 04:15 11/04/21 04:15 11/04/21 04:15 11/04/21 04:15 General appearance: Present: no acute distress, well-nourished - EENT Eyes: Present: PERRL ENT: hearing intact, clear oral mucosa - Neck Neck: Present: supple, normal ROM - Respiratory Respiratory effort: normal Respiratory: bilateral: diminished - Cardiovascular Heart Sounds: Present: S1 & S2. Absent: rub, click - Extremities Extremities: pulses symmetrical, No edema Peripheral Pulses: within normal limits - Abdominal General gastrointestinal: Present: soft, non-tender, non-distended, normal bowel sounds Female genitourinary: Present: normal - Integumentary Integumentary: Present: clear, warm, dry - Musculoskeletal Musculoskeletal: gait normal, strength equal bilaterally - Psychiatric Psychiatric: appropriate mood/affect, intact judgment & insight - Neurologic Neurologic: CNII-XII intact, moves all extremities Results - Labs CBC & Chem 7: 11/04/21 01:52 11/04/21 01:52 Labs: Laboratory Last Values WBC 11.0 K/mm3 (4.5-11.0) 11/04/21 01:52 RBC 3.68 M/mm3 (3.65-5.03) 11/04/21 01:52 Hgb 10.1 gm/dl (10.1-14.3) 11/04/21 01:52 Hct 32.2 % (30.3-42.9) 11/04/21 01:52 MCV 87 fl (79-97) 11/04/21 01:52 MCH 28 pg (28-32) 11/04/21 01:52 MCHC 31 % (30-34) 11/04/21 01:52 RDW 16.5 % (13.2-15.2) H 11/04/21 01:52 Plt Count 198 K/mm3 (140-440) 11/04/21 01:52 Lymph % (Auto) 34.2 % (13.4-35.0) 11/04/21 01:52 Pierce % (Auto) 4.9 % (0.0-7.3) 11/04/21 01:52 Eos % (Auto) 1.6 % (0.0-4.3) 11/04/21 01:52 Baso % (Auto) 0.5 % (0.0-1.8) 11/04/21 01:52 Lymph # (Auto) 3.8 K/mm3 (1.2-5.4) 11/04/21 01:52 Pierce # (Auto) 0.5 K/mm3 (0.0-0.8) 11/04/21 01:52 Eos # (Auto) 0.2 K/mm3 (0.0-0.4) 11/04/21 01:52 Baso # (Auto) 0.1 K/mm3 (0.0-0.1) 11/04/21 01:52 Seg Neutrophils % 58.8 % (40.0-70.0) 11/04/21 01:52 Seg Neutrophils # 6.5 K/mm3 (1.8-7.7) 11/04/21 01:52 PT 14.3 Sec. (12.2-14.9) 11/04/21 01:52 INR 1.00 (0.87-1.13) 11/04/21 01:52 APTT 33.7 Sec. (24.2-36.6) 11/04/21 01:52 ABG pH 7.416 pH Units (7.350-7.450) 11/04/21 03:20 ABG pCO2 33.6 mm Hg 11/04/21 03:20 ABG pO2 83.8 mm Hg (80.0-90.0) 11/04/21 03:20 ABG HCO3 21.2 mmol/L (20.0-26.0) 11/04/21 03:20 ABG O2 Saturation 97.1 % (95.0-99.0) 11/04/21 03:20 ABG O2 Content 12.6 (0.0-44) 11/04/21 03:20 ABG Base Excess -2.9 mmol/L (-2.0-3.0) L 11/04/21 03:20 ABG Hemoglobin 9.4 gm/dl (12.0-16.0) L 11/04/21 03:20 ABG Carboxyhemoglobin 2.0 % (0.0-5.0) 11/04/21 03:20 ABG Methemoglobin 0.5 % (0.0-1.5) 11/04/21 03:20 Oxyhemoglobin 94.6 % (95.0-99.0) L 11/04/21 03:20 FiO2 50 % 11/04/21 03:20 Sodium 138 mmol/L (137-145) 11/04/21 01:52 Potassium 4.8 mmol/L (3.6-5.0) 11/04/21 01:52 Chloride 98.6 mmol/L (98-107) 11/04/21 01:52 Carbon Dioxide 17 mmol/L (22-30) L 11/04/21 01:52 Anion Gap 27 mmol/L 11/04/21 01:52 BUN 43 mg/dL (7-17) H 11/04/21 01:52 Creatinine 8.9 mg/dL (0.6-1.2) H 11/04/21 01:52 Estimated GFR 5 ml/min 11/04/21 01:52 BUN/Creatinine Ratio 5 % 11/04/21 01:52 Glucose 196 mg/dL (65-100) H 11/04/21 01:52 Calcium 8.3 mg/dL (8.4-10.2) L 11/04/21 01:52 - Imaging and Cardiology Chest x-ray: report reviewed Assessment and Plan VTE prophylaxis?: Chemical Plan of care discussed with patient/family: Yes - Patient Problems (1) End-stage renal disease needing dialysis Current Visit: Yes Status: Acute Plan to address problem: Admit the patient to the [facility]. Patient is on BiPAP. Will consult nephrology for emergent dialysis. Recheck CBC BMP in the morning. Continue home medication (2) Acute exacerbation of CHF (congestive heart failure) Current Visit: Yes Status: Acute Qualifiers: Plan to address problem: Fluid restriction. Maintain input output. Will consult nephrology for emergent dialysis. Recheck BMP in the morning. Continue home medication (3) COPD (chronic obstructive pulmonary disease) Current Visit: Yes Status: Acute Plan to address problem: Patient is on BiPAP. DuoNeb via nebulizer every 4 hours. Albuterol via nebulizer every 4 hours as needed. We will continue the home medication (4) Fluid overload Current Visit: Yes Status: Acute Qualifiers: Plan to address problem: Fluid restriction. Maintain input output. Will consult nephrology for emergent dialysis. Recheck BMP in the morning. Continue home medication (5) Acute respiratory failure with hypoxia Current Visit: No Status: Acute Plan to address problem: Patient is on BiPAP. DuoNeb via nebulizer every 4 hours. Albuterol via nebulizer every 4 hours as needed. We will continue the home medication (6) Hypertension Current Visit: No Status: Chronic Qualifiers: Plan to address problem: Hydralazine 10 mg IV every 6 hours as needed. We will continue the home medication. We will monitor the blood pressure closely (7) Diabetes Current Visit: Yes Status: Acute Plan to address problem: Accu-Chek before meals and at bedtime with Humalog moderate dose coverage. Diabetic education (8) DVT prophylaxis Current Visit: No Status: Acute Plan to address problem: Heparin 5000 units subcu every 12 hours for DVT prophylaxis. Pepcid 20 mg p.o. twice daily for GI prophylaxis. Patient is a full code
[2021-11-04] MEDS ORDERED: DEXTROSE 50% IN WATER (25GM) 50 ML SYRINGE IV PRN (04:38)
[2021-11-04] MEDS ORDERED: SODIUM CHLORIDE 0.9% 100 ML IV PRN (07:30)
[2021-11-04] MEDS ORDERED: INSULIN LISPRO 100 UNIT/ML SUB-Q SCH (07:30)
[2021-11-04] MEDS ORDERED: EPOETIN ALFA-EPBX 10,000 UNIT/1 ML VIAL SUB-Q PRN (07:30)
[2021-11-04] MEDS ORDERED: HEPARIN 10,000 UNITS/10 ML VIAL IV PRN (07:30)
[2021-11-04] MEDS: IPRATROPIUM/ALBUTEROL SULFATE 3 ML AMPUL.NEB IH SCH ×2 (08:52→14:33)
[2021-11-04] MEDS ORDERED: HEPARIN 5,000 UNIT/1 ML VIAL SUB-Q SCH (10:00)
[2021-11-04] MEDS ORDERED: FAMOTIDINE 20 MG TAB PO SCH (10:00)
--- NOTE | 2021-11-04 10:23 | Electrocardiograph Report ---
[facility] Test Date: 2021-11-04 Test Time: 02:38:07 Pat Name: RODNEY LANDAVERDE Department: Room: [place] [address] Gender: F Voice Pathologist: NURSE : 1950 Requested By: JARVIS LOCKE Order Number: [id number] Reading MD: Michele Mcknight Measurements Intervals [place] Rate: 121 P: 54 NV: 153 QRS: 43 QRSD: 83 T: 62 QT: 334 QTc: 474 Interpretive Statements Sinus tachycardia Anterior infarct, old Compared to ECG 10/25/2021 13:42:08 Sinus rhythm no longer present Prolonged QT interval no longer present Myocardial infarct finding still present Electronically Signed On 11-04-2021 10:23:01 EDT by Michele Mcknight
--- NOTE | 2021-11-04 11:02 | Consultation ---
History of Present Illness - Reason for Consult Consult date: 11/04/21 end stage renal disease - History of Present Illness 71yr F with h/o ESRD on HD at [facility], [facility]. Regional Service Manager is Dr. Natty Delaney. Pt sent from Rehab home c/o SOB with suspected Pulm Congestion Past History Past Medical History: COPD, diabetes, ESRD, hypertension Past Surgical History: Other (VAs cath to right chest, right leg sx for fx) Social history: no significant social history Family history: hypertension Medications and Allergies Allergies Allergy/AdvReac Type Severity Reaction Status Date / Time No Known Allergies Allergy Verified 09/14/21 15:42 Home Medications Medication Instructions Recorded Confirmed Last Taken Type Ondansetron [Zofran ODT TAB] 4 mg PO Q8HR PRN #15 tab.rapdis 01/21/20 10/27/21 09/14/21 Rx Ciprofloxacin HCl 500 mg PO Q12H #14 tablet 10/05/20 10/27/21 09/14/21 Rx metroNIDAZOLE [Flagyl TAB] 500 mg PO Q12HR #14 tab 10/05/20 10/27/21 09/14/21 Rx methOCARBAMOL [Robaxin TAB] 500 mg PO Q8HR PRN #20 tablet 10/29/20 10/27/21 09/14/21 Rx traMADoL [Ultram 50 MG tab] 50 mg PO Q6HR PRN #7 tablet 10/29/20 10/27/21 09/13/21 Rx Aspirin EC [Halfprin EC] 81 mg PO QDAY #30 tablet 09/17/21 10/27/21 Unknown Rx HYDROcodone/APAP 7.5-325 [[place] 1 each PO Q6HR PRN #12 tablet 09/17/21 10/27/21 Unknown Rx 7.5-325 mg TAB] Metaxalone [Skelaxin] 800 mg PO TID #30 tablet 09/17/21 10/27/21 Unknown Rx NIFEdipine XL [Procardia Xl] 60 mg PO QDAY #30 tablet 09/17/21 10/27/21 Unknown Rx Valsartan [Diovan] 160 mg PO BID #60 tablet 09/17/21 10/27/21 Unknown Rx carvediloL [Coreg] 6.25 mg PO BID #60 tablet 09/17/21 10/27/21 Unknown Rx Calcium Acetate [Phoslo] 2,001 mg PO TIDWM capsule 10/27/21 Unknown Rx Active Meds: Active Medications Acetaminophen (Acetaminophen 325 Mg Tab) 650 mg PO Q4H PRN PRN Reason: Pain MILD(1-3)/Fever >100.5/MARRUFO Albuterol (Albuterol 2.5 Mg/3 Ml Nebu) 2.5 mg IH Q3HRT PRN PRN Reason: Shortness Of Breath Albuterol/Ipratropium (Ipratropium/Albuterol Sulfate 3 Ml Ampul.Neb) 1 ampul IH Q6HRT [facility] Last Admin: 11/04/21 08:52 Dose: 1 ampul Dextrose (Dextrose 50% In Water (25gm) 50 Ml Syringe) 0 ml IV Q30MIN PRN; Protocol PRN Reason: Hypoglycemia Epoetin Maldonado-epbx (Epoetin Maldonado-Epbx 10,000 Unit/1 Ml Vial) 10,000 unit SUB-Q RONAN PRN PRN Reason: hemodialysis Famotidine (Famotidine 20 Mg Tab) 20 mg PO QAM [facility] Heparin Sodium (Porcine) (Heparin 5,000 Unit/1 Ml Vial) 5,000 unit SUB-Q Q12HR [facility] Last Admin: 11/04/21 10:33 Dose: Not Given Heparin Sodium (Porcine) (Heparin 10,000 Units/10 Ml Vial) 3,000 unit IV RONAN PRN PRN Reason: hemodialysis Hydralazine HCl (Hydralazine 20 Mg/1 Ml Inj) 10 mg IV Q6H PRN PRN Reason: Blood Pressure Sodium Chloride (Nacl 0.9%) 100 mls @ 999 mls/hr IV RONAN PRN PRN Reason: Hypotension Insulin Human Lispro (Insulin Lispro 100 Unit/Ml) 0 unit SUB-Q ACHS [facility]; Protocol Last Admin: 11/04/21 10:32 Dose: Not Given Morphine Sulfate (Morphine 2 Mg/1 Ml Inj) 2 mg IV Q4H PRN PRN Reason: Pain, Moderate (4-6) Morphine Sulfate (Morphine 4 Mg/1 Ml Inj) 4 mg IV Q4H PRN PRN Reason: Pain , Severe (7-10) Ondansetron HCl (Ondansetron 4 Mg/2 Ml Inj) 4 mg IV Q8H PRN PRN Reason: Nausea And Vomiting Sodium Chloride (Sodium Chloride 0.9% 10 Ml Flush Syringe) 10 ml IV BID TELLY Sodium Chloride (Sodium Chloride 0.9% 10 Ml Flush Syringe) 10 ml IV PRN PRN PRN Reason: LINE FLUSH Review of Systems Constitutional: other (Awake & verbally responsive) Ears, nose, mouth and throat: no nasal congestion, no nasal discharge Cardiovascular: no chest pain, no palpitations, no leg edema Respiratory: shortness of breath, no cough, no hemoptysis Gastrointestinal: no abdominal pain, no nausea, no vomiting Exam - Vital Signs Vital signs: Vital Signs Pulse Resp BP Pulse Ox 146 H 39 H 170/107 100 11/04/21 01:45 11/04/21 01:45 11/04/21 01:45 11/04/21 01:45 - General Appearance General appearance: other (Awake, in moderate distress) EENT: PERRL, hearing intact Neck: Present: neck supple, JVD/HJR Respiratory: Rales Heart: regular, S1S2 Gastrointestinal: Present: normal Neurologic: alert and oriented x3, other Psychiatric: mood/affect appropriate Results - Lab Results 11/04/21 01:52 11/04/21 01:52 Most recent lab results ABG pH 7.416 pH Units (7.350-7.450) 11/04/21 03:20 ABG pCO2 33.6 mm Hg 11/04/21 03:20 ABG pO2 83.8 mm Hg (80.0-90.0) 11/04/21 03:20 ABG HCO3 21.2 mmol/L (20.0-26.0) 11/04/21 03:20 ABG O2 Saturation 97.1 % (95.0-99.0) 11/04/21 03:20 Calcium 8.3 mg/dL (8.4-10.2) L 11/04/21 01:52 Assessment and Plan ESRD - Pt seen & stable on HD with good blood flow via Lt arm AVG HTN - Review meds & adjust as necessary for better control SOB/Pulm Edema - UF on HD Thanks very much, will f/u with you
[2021-11-04] MEDS: ACETAMINOPHEN 325 MG TAB PO PRN ×2 (11:56→15:24)
--- NOTE | 2021-11-04 14:22 | Progress Note ---
Assessment and Plan Assessment and plan: History of present illness: 71 years old female with history of CHF, COPD and end-stage renal disease on hemodialysis was brought to the emergency room via EMS from a local senior living for evaluation of difficulty in breathing that started today. EMS reported that patient initial oxygen saturation was 89%. Upon arrival to the ER patient was tachypneic with diminished breath sound on both side and diffuse wheezing. Patient also found to have a blood pressure of 220/119. Patient started on albuterol, Atrovent, Solu-Medrol and magnesium sulfate and BiPAP. Patient was given hydralazine and nitroglycerin. In the emergency room patient is found to have BUN of 43 and creatinine 8.9 ,chest x-ray showed volume overload. case discussed the patient with Dr. Durant, electroplater apprentice, he stated that he would with emergency dialysis order. Hospital course: 11/04: Patient from Rehab home. Nephrology plans for UF today given volume overload. Was on bipap, will transition to nasal cannula as sats tolerate. Will likely discharge in 1-2 days once clinical improvement seen. (1) End-stage renal disease needing dialysis Current Visit: Yes Status: Acute Plan to address problem: Admit the patient to the IMCU. Patient is on BiPAP. Will consult nephrology for emergent dialysis. Recheck CBC BMP in the morning. Continue home medication - OP electroplater apprentice is Dr. Delaney - [facility] Nephrology following, Dr. Craig. (4) Fluid overload Current Visit: Yes Status: Acute Qualifiers: Plan to address problem: Fluid restriction. Maintain input output. Will consult nephrology for emergent dialysis. Recheck BMP in the morning. Continue home medication -on bipap, de-escalate as sats tolerate. (3) COPD (chronic obstructive pulmonary disease) Current Visit: Yes Status: Acute Plan to address problem: Patient is on BiPAP. DuoNeb via nebulizer every 4 hours. Albuterol via nebulizer every 4 hours as needed. We will continue the home medication (5) Acute respiratory failure with hypoxia Current Visit: No Status: Acute Plan to address problem: Patient is on BiPAP. DuoNeb via nebulizer every 4 hours. Albuterol via nebulizer every 4 hours as needed. We will continue the home medication (6) Hypertension Current Visit: No Status: Chronic Qualifiers: Plan to address problem: Hydralazine 10 mg IV every 6 hours as needed. We will continue the home medication. We will monitor the blood pressure closely (7) Diabetes Current Visit: Yes Status: Acute Plan to address problem: Accu-Chek before meals and at bedtime with Humalog moderate dose coverage. Diabetic education (8) DVT prophylaxis Current Visit: No Status: Acute Plan to address problem: Heparin 5000 units subcu every 12 hours for DVT prophylaxis. Pepcid 20 mg p.o. twice daily for GI prophylaxis. Patient is a full code Hospitalist Physical - Constitutional Vitals: Temp Pulse Resp BP Pulse Ox 98.3 F 92 H 20 161/96 100 11/04/21 02:51 11/04/21 09:16 11/04/21 11:56 11/04/21 08:15 11/04/21 08:52 General appearance: Present: no acute distress, well-nourished Results - Labs CBC & Chem 7: 11/04/21 01:52 11/04/21 01:52 Labs: Laboratory Last Values WBC 11.0 K/mm3 (4.5-11.0) 11/04/21 01:52 RBC 3.68 M/mm3 (3.65-5.03) 11/04/21 01:52 Hgb 10.1 gm/dl (10.1-14.3) 11/04/21 01:52 Hct 32.2 % (30.3-42.9) 11/04/21 01:52 MCV 87 fl (79-97) 11/04/21 01:52 MCH 28 pg (28-32) 11/04/21 01:52 MCHC 31 % (30-34) 11/04/21 01:52 RDW 16.5 % (13.2-15.2) H 11/04/21 01:52 Plt Count 198 K/mm3 (140-440) 11/04/21 01:52 Lymph % (Auto) 34.2 % (13.4-35.0) 11/04/21 01:52 [place] % (Auto) 4.9 % (0.0-7.3) 11/04/21 01:52 Eos % (Auto) 1.6 % (0.0-4.3) 11/04/21 01:52 Baso % (Auto) 0.5 % (0.0-1.8) 11/04/21 01:52 Lymph # (Auto) 3.8 K/mm3 (1.2-5.4) 11/04/21 01:52 [place] # (Auto) 0.5 K/mm3 (0.0-0.8) 11/04/21 01:52 Eos # (Auto) 0.2 K/mm3 (0.0-0.4) 11/04/21 01:52 Baso # (Auto) 0.1 K/mm3 (0.0-0.1) 11/04/21 01:52 Seg Neutrophils % 58.8 % (40.0-70.0) 11/04/21 01:52 Seg Neutrophils # 6.5 K/mm3 (1.8-7.7) 11/04/21 01:52 PT 14.3 Sec. (12.2-14.9) 11/04/21 01:52 INR 1.00 (0.87-1.13) 11/04/21 01:52 APTT 33.7 Sec. (24.2-36.6) 11/04/21 01:52 ABG pH 7.416 pH Units (7.350-7.450) 11/04/21 03:20 ABG pCO2 33.6 mm Hg 11/04/21 03:20 ABG pO2 83.8 mm Hg (80.0-90.0) 11/04/21 03:20 ABG HCO3 21.2 mmol/L (20.0-26.0) 11/04/21 03:20 ABG O2 Saturation 97.1 % (95.0-99.0) 11/04/21 03:20 ABG O2 Content 12.6 (0.0-44) 11/04/21 03:20 ABG Base Excess -2.9 mmol/L (-2.0-3.0) L 11/04/21 03:20 ABG Hemoglobin 9.4 gm/dl (12.0-16.0) L 11/04/21 03:20 ABG Carboxyhemoglobin 2.0 % (0.0-5.0) 11/04/21 03:20 ABG Methemoglobin 0.5 % (0.0-1.5) 11/04/21 03:20 Oxyhemoglobin 94.6 % (95.0-99.0) L 11/04/21 03:20 FiO2 50 % 11/04/21 03:20 Sodium 138 mmol/L (137-145) 11/04/21 01:52 Potassium 4.8 mmol/L (3.6-5.0) 11/04/21 01:52 Chloride 98.6 mmol/L (98-107) 11/04/21 01:52 Carbon Dioxide 17 mmol/L (22-30) L 11/04/21 01:52 Anion Gap 27 mmol/L 11/04/21 01:52 BUN 43 mg/dL (7-17) H 11/04/21 01:52 Creatinine 8.9 mg/dL (0.6-1.2) H 11/04/21 01:52 Estimated GFR 5 ml/min 11/04/21 01:52 BUN/Creatinine Ratio 5 % 11/04/21 01:52 Glucose 196 mg/dL (65-100) H 11/04/21 01:52 Calcium 8.3 mg/dL (8.4-10.2) L 11/04/21 01:52 Active Medications - Current Medications Current Medications: Generic Name Dose Route Start Last Admin Trade Name Freq PRN Reason Stop Dose Admin Acetaminophen 650 mg 11/04/21 04:28 11/04/21 11:56 Acetaminophen 325 Mg Tab PO 650 mg Q4H PRN Administration Pain MILD(1-3)/Fever >100.5/MARRUFO Albuterol 2.5 mg 11/04/21 04:28 Albuterol 2.5 Mg/3 Ml Nebu IH Q3HRT PRN Shortness Of Breath Albuterol/Ipratropium 1 ampul 11/04/21 08:00 11/04/21 08:52 Ipratropium/Albuterol Sulfate 3 Ml Ampul.Neb IH 1 ampul Q6HRT TELLY Administration Dextrose 0 ml 11/04/21 04:38 Dextrose 50% In Water (25gm) 50 Ml Syringe IV Q30MIN PRN Hypoglycemia Protocol Epoetin Maldonado-epbx 10,000 unit 11/04/21 07:30 Epoetin Maldonado-Epbx 10,000 Unit/1 Ml Vial SUB-Q RONAN PRN hemodialysis Famotidine 20 mg 11/04/21 10:00 11/04/21 12:15 Famotidine 20 Mg Tab PO Not Given QAM TELLY Heparin Sodium (Porcine) 5,000 unit 11/04/21 10:00 11/04/21 10:33 Heparin 5,000 Unit/1 Ml Vial SUB-Q Not Given Q12HR [facility] Heparin Sodium (Porcine) 3,000 unit 11/04/21 07:30 Heparin 10,000 Units/10 Ml Vial IV RONAN PRN hemodialysis Hydralazine HCl 10 mg 11/04/21 04:30 Hydralazine 20 Mg/1 Ml Inj IV Q6H PRN Blood Pressure Sodium Chloride 100 mls @ 999 mls/hr 11/04/21 07:30 Nacl 0.9% IV RONAN PRN Hypotension Insulin Human Lispro 0 unit 11/04/21 07:30 11/04/21 10:32 Insulin Lispro 100 Unit/Ml SUB-Q Not Given ACHS [facility] Protocol Morphine Sulfate 2 mg 11/04/21 04:28 Morphine 2 Mg/1 Ml Inj IV Q4H PRN Pain, Moderate (4-6) Morphine Sulfate 4 mg 11/04/21 04:28 Morphine 4 Mg/1 Ml Inj IV Q4H PRN Pain , Severe (7-10) Ondansetron HCl 4 mg 11/04/21 04:28 Ondansetron 4 Mg/2 Ml Inj IV Q8H PRN Nausea And Vomiting Sodium Chloride 10 ml 11/04/21 10:00 11/04/21 12:15 Sodium Chloride 0.9% 10 Ml Flush Syringe IV Not Given BID [facility] Sodium Chloride 10 ml 11/04/21 04:28 Sodium Chloride 0.9% 10 Ml Flush Syringe IV PRN PRN LINE FLUSH
--- NOTE | 2021-11-04 15:01 | Discharge Summary ---
Providers - Providers Date of Admission: 11/04/21 04:28 Date of discharge: 11/04/21 Attending physician: JOSELO MONTOYA MD 11/04/21 02:44 Consult to Physician [CONS] Stat Comment: Dr. Nagel spoke with Dr. Pulido @ [phone] Consulting Provider: JASE PULIDO Physician Instructions: Reason For Exam: End-stage renal disease needing dialysis 11/04/21 04:38 Consult to Dietitian/Nutrition [CONS] Routine Physician Instructions: Reason For Exam: Reason for Consult: Diet education Primary care physician: SILO WORKER Hospitalization Reason for admission: shortness of breath Condition: Stable Hospital course: History of present illness: 71 years old female with history of CHF, COPD and end-stage renal disease on hemodialysis was brought to the emergency room via EMS from a local group home for evaluation of difficulty in breathing that started today. EMS reported bernardino t patient initial oxygen saturation was 89%. Upon arrival to the ER patient was tachypneic with diminished breath sound on both side and diffuse wheezing. Patient also found to have a blood pressure of 220/119. Patient started on albuterol, Atrovent, Solu-Medrol and magnesium sulfate and BiPAP. Patient was given hydralazine and nitroglycerin. In the emergency room patient is found to have BUN of 43 and creatinine 8.9 ,chest x-ray showed volume overload. case discussed the patient with Dr. Pulido, sod cutter, he stated that he would with emergency dialysis order. Hospital course: She was admitted for volume overload secondary to missed dialysis session. Nephrology was consulted on admission and patient was subsequently dialyzed. Approximately 3 L fluid removed. Patient was on BiPAP now currently on room air saturating 94 to 96%. She is stable and has no acute complaints on my encounter. Can be discharged back to facility today. (1) End-stage renal disease needing dialysis Current Visit: Yes Status: Acute Plan to address problem: Admit the patient to the [facility]. Patient is on BiPAP. Will consult nephrology for emergent dialysis. Recheck CBC BMP in the morning. Continue home medication - OP sod cutter is Dr. Delaney - [facility] Nephrology following, Dr. Craig. (4) Fluid overload Current Visit: Yes Status: Acute Qualifiers: Plan to address problem: Fluid restriction. Maintain input output. Will consult nephrology for emergent dialysis. Recheck BMP in the morning. Continue home medication -on bipap, de-escalate as sats tolerate. (3) COPD (chronic obstructive pulmonary disease) Current Visit: Yes Status: Acute Plan to address problem: Patient is on BiPAP. DuoNeb via nebulizer every 4 hours. Albuterol via nebulizer every 4 hours as needed. We will continue the home medication (5) Acute respiratory failure with hypoxia Current Visit: No Status: Acute Plan to address problem: Patient is on BiPAP. DuoNeb via nebulizer every 4 hours. Albuterol via nebulizer every 4 hours as needed. We will continue the home medication (6) Hypertension Current Visit: No Status: Chronic Qualifiers: Plan to address problem: Hydralazine 10 mg IV every 6 hours as needed. We will continue the home medication. We will monitor the blood pressure closely (7) Diabetes Current Visit: Yes Status: Acute Plan to address problem: Accu-Chek before meals and at bedtime with Humalog moderate dose coverage. Diabetic education (8) DVT prophylaxis Current Visit: No Status: Acute Plan to address problem: Heparin 5000 units subcu every 12 hours for DVT prophylaxis. Pepcid 20 mg p.o. twice daily for GI prophylaxis. Patient is a full code Disposition: 03 LONG-TERM FACILITY Final Discharge Diagnosis (Prints w/discharge instructions): volume overload, esrd on hd Time spent for discharge: 25 Core Measure Documentation - Palliative Care Palliative Care/ Comfort Measures: Not Applicable - Core Measures Any of the following diagnoses?: none Exam - Physical Exam Narrative exam: Physical Exam: VITAL SIGNS: Reviewed. GENERAL: The patient appears normally developed, Vital signs as documented. HEAD: No signs of head trauma. EYES: Pupils are equal. Extraocular motions intact. EARS: Hearing grossly intact. MOUTH: Oropharynx is normal. NECK: No adenopathy, no JVD. CHEST: Chest with clear breath sounds bilaterally. No wheezes, rales, or rhonchi. CARDIAC: Regular rate and rhythm. S1 and S2, without murmurs, gallops, or rubs. VASCULAR: No Edema. Peripheral pulses normal and equal in all extremities. ABDOMEN: Soft, non tender and non distended. No rebound or guarding, and no masses palpated. Bowel Sounds normal. MUSCULOSKELETAL: Good range of motion of all major joints. Extremities without clubbing, cyanosis or edema. NEUROLOGIC EXAM: Alert and oriented x 4. no focal sensory or strength deficits. PSYCHIATRIC: Mood normal. SKIN: detail exam as documented in skin assessment - Constitutional Vitals: Temp Pulse Resp BP Pulse Ox 98.4 F 82 32 H 171/91 100 11/04/21 10:00 11/04/21 14:33 11/04/21 14:33 11/04/21 13:50 11/04/21 12:22 Plan Follow up with: PRIMARY CARE, [Primary Care Provider] - 3-5 Days
[2021-11-04 16:28] VITALS: BP 139/78
[2021-11-04] MEDS ORDERED: BUDESONIDE 0.5 MG/2 ML NEBU IH SCH (20:00)
== END 2021-11-04 16:08 ==
LOC: ED 01:32 → INTOOBSV 04:28 → IMCU 04:28
PROVIDERS: ADMIT Hospitalist; ATTEND Internal Medicine
DX: J96.01 Acute respiratory failure with hypoxia (principal); E87.70 Fluid overload, unspecified; I16.1 Hypertensive emergency; I13.2 Hypertensive heart and chronic kidney disease with heart failure and with stage 5 chronic kidney disease, or end stage renal disease; I50.9 Heart failure, unspecified; N18.6 End stage renal disease; E11.22 Type 2 diabetes mellitus with diabetic chronic kidney disease; J44.9 Chronic obstructive pulmonary disease, unspecified; J81.0 Acute pulmonary edema; Z99.2 Dependence on renal dialysis; Z79.899 Other long term (current) drug therapy; Z98.890 Other specified postprocedural states; Z79.82 Long term (current) use of aspirin; Z79.4 Long term (current) use of insulin
CPT/HCPCS: 36415; 36600; 71045; 80048; 82803; 85025; 85610; 85730; 93005; 94640; 96365; 96375; 99291; G0378; J0360; J2060; J2930; J3475; 94644